=== PATIENT | male | born 1985 | race Caucasian/White ===

== ENCOUNTER 2024-03-17 17:58 | Emergency (ER) | payer SELFPAY ==
[2024-03-17 18:10] VITALS: BP 153/83; PULSE 89; RESP 16; TEMP 36.6; O2SAT 100; BMI 29.0
--- NOTE | 2024-03-17 22:53 | ED.RECABL ---
HPI - Recheck/Abnormal Lab/Rx General Chief Complaint: Recheck/Abnormal Lab/Rx Stated Complaint: Strep, can't swallow Time Seen by Provider: 03/17/24 22:03 Source: patient Mode of arrival: Ambulatory History of Present Illness HPI narrative: 38-year-old male presents for difficulty swallowing. Diagnosed with strep throat earlier today and discharged with amoxicillin and Decadron prescription. Patient states that he was having difficulty swallowing the amoxicillin due to the size of the tablet but it was able to swallow his Decadron tablets. Patient states that because he lives alone he wants to make sure that his throat will not close up overnight. He is tolerating secretions. Related Data Previous Rx's Medication Instructions Recorded amoxicillin 500 mg tablet 500 mg PO BID #20 tabs 03/17/24 dexamethasone 6 mg tablet 12 mg (2 x 6 mg) PO ONCE #2 tabs 03/17/24 Allergies Allergy/AdvReac Type Severity Reaction Status Date / Time No Known Drug Allergies Allergy Unverified 03/17/24 18:14 Patient History Social History Smoking Status: Never smoker Smoking Status: Never smoker Substance Use Type: does not use Exam Initial Vital Signs Initial Vital Signs: Vital Signs Temperature 97.8 F 03/17/24 18:10 Pulse Rate 89 03/17/24 18:10 Respiratory Rate 16 03/17/24 18:10 Blood Pressure 153/83 H 03/17/24 18:10 Pulse Oximetry 100 03/17/24 18:10 Oxygen Delivery Method Room Air 03/17/24 18:10 Const: Awake, alert, no acute distress, nontoxic appearing HEENT: airway patent, no pooling of secretions. 3+ tonsillar edema bilaterally Cardiac: regular rate, regular rhythm RESP: unlabored, clear bilaterally, no wheezing Skin: Warm, Dry, intact, no rashes Neuro: AO x3, CN II-XII grossly intact, moves all extremities Course Orders Ordered: Discontinued Medications Amoxicillin (Amoxicillin 250 Mg/5 Ml Prepack) 1 bottle MISC DIRECTED ONE Stop: 03/17/24 22:55 Last Admin: 03/17/24 23:06 Dose: 1 bottle Documented By: TAI Ketorolac Tromethamine (Ketorolac 30 Mg/Ml Vial) 30 mg IM NOW ONE Stop: 03/17/24 23:02 Last Admin: 03/17/24 23:06 Dose: 30 mg Documented By: TAI Lidocaine HCl (Lidocaine Viscous 2% 15 Ml Solution) 15 ml PO NOW ONE Stop: 03/17/24 23:02 Last Admin: 03/17/24 23:06 Dose: 15 ml Documented By: TAI Vital Signs Vital signs: Vital Signs - 8 hr 03/17/24 23:08 Pulse Rate 90 Respiratory Rate 18 Blood Pressure 146/78 H Pulse Oximetry 97 Oxygen Delivery Method Room Air MDM - Recheck/Abnormal Lab/Rx MDM Narrative Medical decision making narrative: Recently diagnosed strep throat with difficulty swallowing. Patient has already received Decadron and taken an appropriate dose for his condition. He has approximately 3+ tonsillar edema without pooling of secretions. Airway is patent and mucous membranes are moist. Patient requested a liquid version of the amoxicillin until his throat feels better and he can tolerate a large pill. A prepack of amoxicillin sent with patient. He was also given viscous lidocaine for comfort and a Toradol injection. Discharge Plan Departure Patient Disposition: Home Clinical Impression: Acute streptococcal pharyngitis Instructions: DI for Strep Throat Activity Restrictions/Additional Instructions: Continue to take your antibiotics as prescribed. When you are able to swallow pills then you may retake them for a total of 10 days of antibiotics. Take Tylenol and ibuprofen as needed for discomfort or fever. Prescriptions: No Action amoxicillin 500 mg tablet 500 mg PO BID Qty: 20 0RF dexamethasone 6 mg tablet 12 mg PO ONCE Qty: 2 0RF Referrals: Miscellaneous,Doctor, MD [Primary Care Provider] - Stand Alone Forms: Patient Portal/API/Survey
[2024-03-17] MEDS: KETOROLAC 30 MG/ML VIAL IM (23:06)
[2024-03-17] MEDS: AMOXICILLIN 250 MG/5 ML PREPACK 1 BOTTLE MISC (23:06)
[2024-03-17] MEDS: LIDOCAINE VISCOUS 2% 15 ML SOLUTION PO (23:06)
[2024-03-17 23:08] VITALS: BP 146/78; PULSE 90; RESP 18; O2SAT 97
== END 2024-03-17 23:15 | disposition home or self-care (01) ==
PROVIDERS: Emergency Provider Emergency Medicine
DX: J02.0 Streptococcal pharyngitis (principal)
CPT/HCPCS: 96372; 99283; J1885

== ENCOUNTER 2024-05-21 20:53 | Emergency (ER) | payer BC, SELFPAY ==
[2024-05-21 20:59] VITALS: BP 104/65; PULSE 80; RESP 18; TEMP 36.9; O2SAT 100; BMI 28.2
--- NOTE | 2024-05-21 21:14 | DI.RAD.S_ITS ---
PROCEDURE: XR ANKLE LT MIN 3V INDICATIONS: fall, left ankle swelling TECHNIQUE: 3 views of the ankle were acquired. COMPARISON: None. FINDINGS: Bones: No fractures or dislocations. Ankle mortise is normally aligned. No suspicious bony lesions. Soft tissues: No tibiotalar joint effusion. Achilles tendon appears normal. IMPRESSION: No acute bony abnormality or significant effusion. Approved by: Naima Mitchell M.D.,Ph.D. on 05/21/2024 at 21:48
--- NOTE | 2024-05-22 00:54 | ED_ITS ---
HPI - Extremity Injury (Lower) General Chief Complaint: Extremity Injury, Lower Stated Complaint: lt hand, lt foot injuries Time Seen by Provider: 05/22/24 00:46 Source: patient, family, RN notes reviewed and old records reviewed Mode of arrival: Wheelchair Limitations: no limitations History of Present Illness HPI Narrative: 38-year-old male no reported medical issues states he was out on a porch moving a Pyrex dish thought there was a step down and there was not fell sort of inverting his ankle as well as falling on the glass dish in cutting his hand. Patient states he is pain in his ankle he was able to weightbear but has a little bit uncomfortable. Denies any numbness or tingling or weakness in the lower extremity. States he was several abrasions to his extremities but main concern is laceration to the left hand. He denies any numbness tingling or weakness has full range of motion. States he did not wash it out after initially fell. States tetanus was updated last in 2014. Notes that he surgery on his wrist on the left in the past but no other medical issues reported. No daily prescription medications. No known drug allergies. Denies any regular tobacco, no regular alcohol or recreational drugs. Related Data Home Medications Medication Instructions Recorded Confirmed No Known Home Medications 05/21/24 05/21/24 Allergies Allergy/AdvReac Type Severity Reaction Status Date / Time No Known Drug Allergies Allergy Unverified 03/17/24 18:14 Review of Systems Review of Systems ROS Unobtainable: All systems reviewed & are unremarkable except as noted in HPI and below Patient History Social History Smoking Status: Never smoker Smoking Status: Never smoker Exam Narrative Exam Narrative: GENERAL: Alert and oriented x three, male in mild distress HEENT: Head normocephalic, atraumatic, EOMI, pupils reactive, face symmetric, moist mucous membranes NECK: Supple, full range of motion CARDIOVASCULAR: Regular rate and rhythm without murmurs, rubs or gallops. RESPIRATORY: Breath sounds equal bilaterally, no wheezes rales or rhonchi. ABDOMEN: Soft, nontender. Normoactive bowel sounds all 4 quadrants. No guarding or rebound, rigidity, no mass : No CVA tenderness EXTREMITIES: Normal range of motion, no clubbing or edema. Neurovascularly intact. Nontender of the left knee, tib-fib, ankle or foot. Patient does have swelling and ecchymosis over the lateral malleolus as well as just inferior. No joint laxity appreciated. 2+ dorsalis pedis normal sensation throughout. Left hand patient has a stellate laceration on the ulnar side of the hand. Normal range of motion of all 5 fingers no bony tenderness. No tendon or ligament involvement appreciated. 2+ radial pulse. Cap refill less than 2 seconds in all 5 fingers. NEUROLOGICAL: Cranial nerves II through XII grossly intact. Moving all extremities SKIN: Warm, dry, no petechiae, no rashes or lesions. Initial Vital Signs Initial Vital Signs: Vital Signs Temperature 98.4 F 05/21/24 20:59 Pulse Rate 80 05/21/24 20:59 Respiratory Rate 18 05/21/24 20:59 Blood Pressure 104/65 05/21/24 20:59 Pulse Oximetry 100 05/21/24 20:59 Oxygen Delivery Method Room Air 05/21/24 20:59 Procedures Laceration Repair Laceration 1: Site: hand Side (If applicable): left Size (cm): 1.2 Description: stellate, irregular and clean Depth: simple, single layer Local Anesthetic: lidocaine 1% Amount of anesthesia used (mL): 4 Pre-repair: wound explored, irrigated extensively and deep structures intact Skin layer closed with: nylon Skin layer suture size: 4-0 Number of sutures: 5 Technique: simple, interrupted Course Orders Ordered: ED Orders 05/21/24 21:14 XR ankle LT min 3V Stat Discontinued Medications Bacitracin (Bacitracin Oint 0.9 Gm Pckt) 3 applic TOP NOW ONE Stop: 05/22/24 01:24 Last Admin: 05/22/24 01:27 Dose: 3 applic Documented By: AB Diphtheria/Tetanus/Acell Pertussis (Tet,Diph,Pertuss(Acell),Vac/Pf 0.5 Ml Syringe) 0.5 ml IM .ONCE ONE Stop: 05/22/24 01:20 Last Admin: 05/22/24 01:27 Dose: 0.5 ml Documented By: AB Lidocaine HCl (Lidocaine 1% 20 Ml) 20 ml INJ INTRA-OP ONE Stop: 05/21/24 21:52 Last Admin: 05/22/24 01:08 Dose: 20 ml Documented By: AB Vital Signs Vital signs: Vital Signs - 8 hr 05/21/24 20:59 05/22/24 01:49 Temperature 98.4 F Pulse Rate 80 88 Respiratory Rate 18 20 Blood Pressure 104/65 127/88 Pulse Oximetry 100 97 Oxygen Delivery Method Room Air Room Air MDM - Extremity Injury (Lower) Imaging Data Extremity x-ray #1: Radiologist's Impression: Bob Hernandez??38??M??1985 ? Allergy/Adv: No Known Drug Allergies (More??) Close Ankle X-Ray (Signed) Naima Mitchell - 05/21/24 Launch?[address] [address] XRay Report Signed Patient: Bob Hernandez MR#: [id number] : 1985 Acct:[id number] Age/Sex: 38 / M Date of Service: 05/21/24 Loc: ED Accession Number: [id number] Procedure: XR ankle LT min 3V Ordering Provider: Jacqueline Wise D.O. PROCEDURE: XR ANKLE LT MIN 3V INDICATIONS: fall, left ankle swelling TECHNIQUE: 3 views of the ankle were acquired. COMPARISON: None. FINDINGS: Bones: No fractures or dislocations. Ankle mortise is normally aligned. No suspicious bony lesions. Soft tissues: No tibiotalar joint effusion. Achilles tendon appears normal. IMPRESSION: No acute bony abnormality or significant effusion. Approved by: Naima Mitchell M.D.,Ph.D. on 05/21/2024 at 21:48 MDM Narrative Medical decision making narrative: 38-year-old male with ground level fall denies hitting his head no loss of consciousness no neck or back pain has several abrasions on his extremity but has a laceration of the left hand did require repair no tendon or ligament involvement no foreign body appreciated. Patient tolerated this well. Patient also appears to have a left ankle sprain. Did have x-ray which shows no acute fracture or bony change. Patient's tetanus was updated. Discussed with patient he was able to weightbear pretty well does have crutches at home so use David wrap and weightbear as tolerated. Sutures to be removed in 7-10 days with wound care directions reviewed verbally and given written. Discussed return precautions all questions answered. Discharge Plan Departure Patient Disposition: Home Clinical Impression: Laceration of hand, Left ankle sprain Instructions: DI for Laceration Repair, DI for Ankle Sprain Activity Restrictions/Additional Instructions: Wound Care: Keep wound(s) clean and dry. Wash daily with soap and water only. Do not use over the counter products (alcohol or peroxide)on the wounds unless instructed by a physician. You can use triple antibiotic ointment to the laceration daily. If wound condition worsens (increased/expanding redness, developing fluid blisters, or worsening pain), either contact your doctor for an urgent re- assessment , or return to the Emergency Department. Return to the ED, urgent care, or visit a primary care doctor for removal or sutures in 7-10 days. Weightbear as tolerated if you are having worsening pain with no improvement follow up in the next week for recheck of your ankle. Return if fever greater than 100.4 Fahrenheit, increased swelling, increasing pain or worsening symptoms such as increased discharge or spreading redness, any new weakness numbness or difficulty with movement of your hand or ankle or other new or concerning changes. Prescriptions: No Action No Known Home Medications Referrals: Miscellaneous,Doctor, [Primary Care Provider] - Stand Alone Forms: Patient Portal/API/Survey
[2024-05-22] MEDS: LIDOCAINE 1% 20 ML INJ (01:08)
--- NOTE | 2024-05-22 01:21 | PC.NURSE ---
Right knee has a slight abrasion, non bleeding. Cleaned in triage left open to air. Right hand cleaned in triage, no open wounds noted. Left hand will be sutured by provider, then a dressing placed after.
[2024-05-22] MEDS: BACITRACIN OINT 0.9 GM PCKT 3 APPLIC TOP (01:27)
[2024-05-22] MEDS: TET,DIPH,PERTUSS(ACELL),VAC/PF 0.5 ML SYRINGE IM (01:27)
[2024-05-22 01:49] VITALS: BP 127/88; PULSE 88; RESP 20; O2SAT 97
== END 2024-05-22 01:50 | disposition home or self-care (01) ==
PROVIDERS: Emergency Provider Emergency Medicine
DX: S61.412A Laceration without foreign body of left hand, initial encounter (principal); S93.402A Sprain of unspecified ligament of left ankle, initial encounter; X50.1XXA Overexertion from prolonged static or awkward postures, initial encounter; Z23 Encounter for immunization
CPT/HCPCS: 12001; 73610; 90471; 99283; 90715

== ENCOUNTER → 2024-06-25 15:47 | Outpatient (CLI) | payer OTHER, SELFPAY ==
--- NOTE | 2024-06-25 15:48 | DI.MRI.S_ITS ---
PROCEDURE: MR ANKLE LT WO CON INDICATIONS: SPRAIN LEFT ANKLE TECHNIQUE: Noncontrast sagittal T1 spin echo and T2 fast spin echo with fat saturation, axial proton density fast spin echo and T2 fast spin echo with fat saturation, coronal T1 spin echo and T2 fast spin echo with fat saturation through the ankle/hindfoot. COMPARISON: [facility], CR, XR ANKLE LT MIN 3V, 05/21/2024, 21:14. FINDINGS: Image quality: Excellent. Bones and joints: Extensive marrow edema involving 5th metatarsal shaft with a nondisplaced fracture through 5th metatarsal base is seen. Significant marrow edema involving plantar aspect of distal talus is seen without discrete fracture line. Small osteochondral injuries are noted involving lateral weight-bearing portion of talar dome with mild surrounding edema. Small to moderate joint effusion is seen, no loose bodies. No other area of abnormal marrow signal. Medial structures: The posterior tibialis, flexor digitorum longus, and flexor hallucis longus tendons are mildly thickened with small amount of fluid distending tendon sheath at the level of tibiotalar joint extending to the level of talonavicular joint.. The posterior tibial neurovascular bundle appears normal within the tarsal tunnel, without extrinsic mass effect. The deltoid ligament and spring ligament are thickened with intrasubstance T2 hyperintense signal. Lateral structures: The anterior talofibular ligament is mildly thickened. The calcaneofibular, and posterior talofibular ligaments appear intact. More superiorly, the anterior and posterior tibiofibular ligaments appear intact, as is the intermalleolar ligament. The tibiofibular syndesmosis is normal in width at 2 mm or less. The peroneus longus and brevis tendons are mildly thickened extending to their distal insertions. No gross signal abnormality is seen within the sinus tarsi. Anterior structures: The tibialis anterior, extensor hallucis longus, and extensor digitorum longus tendons appear intact. The dorsal talonavicular ligament appears intact. Posterior and plantar structures: Achilles tendon is intact. Medial and lateral bands of the plantar fascia are of normal thickness. No abductor digiti quinti muscle atrophy to suggest Gutierrez neuropathy. IMPRESSION: 1. Acute to subacute appearing nondisplaced fracture involving 5th metatarsal base. 2. Likely bony contusion involving plantar aspect of distal talus. 3. Small osteochondral injuries involving lateral weight-bearing portion of talar dome. Small to moderate joint effusion, no loose bodies. 4. Low-grade tenosynovitis involving flexor tendons. Mild tendinosis also seen involving peroneus tendons at the level of lateral malleolus extending to their distal insertions. 5. Low-grade partial-thickness tear involving medial ankle ligaments. Low-grade sprain involving anterior talofibular ligament. No full-thickness ankle ligament rupture. Dictated by: Ken Aly M.D. on 06/29/2024 at 13:29 Approved by: Ken Aly M.D. on 06/29/2024 at 13:39
== END ==
PROVIDERS: Family Provider Emergency Medicine Emergency Medical Services; PCP Emergency Medicine Emergency Medical Services; Referring Provider Emergency Medicine Emergency Medical Services; Visit Provider Emergency Medicine Emergency Medical Services
DX: S92.355A Nondisplaced fracture of fifth metatarsal bone, left foot, initial encounter for closed fracture (principal); S93.492A Sprain of other ligament of left ankle, initial encounter; M65.972 Unspecified synovitis and tenosynovitis, left ankle and foot; M25.472 Effusion, left ankle
CPT/HCPCS: 73721

== ENCOUNTER 2024-08-24 08:15 | Outpatient (RCR) | payer OTHER, SELFPAY ==
--- NOTE | 2024-06-16 08:22 | PT-OP ANOTE ---
Pt does not show for eval.
--- NOTE | 2024-06-17 10:40 | PT-OP ANOTE ---
Addendum entered and electronically signed by Akosua Garcia, PT 06/17/24 18:22: Pt called to inform of MD recommendations. MD called PT back and left kenag w/front: MRI order is in at [facility] and there may be an insurance issue and said no to podiatry referral. Pt to stay in boot until MRI Original Note: Pt provider office called and inquired about MRI and pt said doctor had discussed this with him. Also, asked provider to consider referral to podiatry as pt has very little ROM. Asked to call back and inform re: how long he wants pt to wear boot.
--- NOTE | 2024-06-17 11:15 | PT.OIE ---
Current Diagnoses Sprain of unspecified ligament of left ankle, subsequent encounter (06/17/24) Visit Care Team Role Provider Type Andrey Sanchez MD Attending Provider Non-Staff Family Provider Primary Care Provider Referring Provider Specialty: Emergency Medicine Family Practice Address: [address] [place] [address], [address], [place], [address] Email: Physical Therapy Initial Evaluation PT-OP-A Visit Information Start: 06/15/24 16:00 Freq: Status: Active Protocol: Document 06/17/24 09:54 [facility] (Rec: 06/17/24 11:14 [facility] [id number]) Out-Patient Physical Therapy Visit Information Visit Information Visit Type Initial Evaluation Visit Start Time 09:51 Visit Stop Time 10:31 Visit Number 05/29 Number of DIRECTOR SOCIAL SERVICE Visits 0 PT-OP-B Current Condition Start: 06/15/24 16:00 Freq: Status: Active Protocol: Document 06/17/24 09:54 [facility] (Rec: 06/17/24 11:14 [facility] [id number]) Current Condition History of Current Condition Onset Date 05/22 Current Complaints L ankle sprain and 5th MT fx History of Current Condition Pt picked up something and stepped backwards off the porch and twisted. Came to ER and they did ankle xray looked ok. Told him just sprain and was walking on it since they told him it was ok for 10 days . He got stitches out d/t it got cut in hand but walk in didn't look at ankle. Did xray and 5th MT fx and severe med and lat ankle sprain. He hasn' t had any guidance so hasn't done much. He has been in boot since primary appt. Doing ROM at home. When rests for a long time, gets stiff and locks up. Did not give a timeline for the boot but just referred for PT. Hx of R ankle sprains and breaks. In 2014, L ankle had ankle injury w/ant swelling after playing frizbee on feild and lat roll but also pushed into DF. Didn 't have insurance so didn't ahve it checked. Had a chip on L baptiste d/t running into doorframe. Typically runs frequently, except R achilles injury in 2022 so has dec some but does hike and walk a lot. Walks beach, goes swimming. Mostly wearing the boot at home. He has tried small bouts later in the day w/the boot Treatment Goals Patient/Caregiver Goals Be able to hike, run, walk on beach PT-OP-C Subjective Start: 06/15/24 16:00 Freq: Status: Active Protocol: Document 06/17/24 09:54 [facility] (Rec: 06/17/24 11:15 [facility] [id number]) Patient Questionnaires Lower Extremity Functional Scale LEFS Score 38/80 PT-OP-F Manual Assessment Start: 06/15/24 16:00 Freq: Status: Active Protocol: Document 06/17/24 09:54 [facility] (Rec: 06/17/24 11:14 [facility] [id number]) Manual Assessments Soft Tissue Assessment Soft Tissue Mobility Assessment ant ankle swelling and around malleoli PT-OP-G Mobility & Gait Start: 06/15/24 16:00 Freq: Status: Active Protocol: Document 06/17/24 09:54 [facility] (Rec: 06/17/24 11:14 [facility] [id number]) OP Gait Assessment Comments Gait Comments amb w/walking boot w/dec stance time PT-OP-K Range of Motion Start: 06/15/24 16:00 Freq: Status: Active Protocol: Document 06/17/24 09:54 [facility] (Rec: 06/17/24 11:14 [facility] [id number]) Ankle and Foot Goniometric Range of Motion Ankle and Foot Right Active Dorsiflexion with Knee Flexed 5 Dorsiflexion with Knee Extended 2 Plantarflexion 59 Inversion 36 Eversion 21 Left Active Dorsiflexion with Knee Flexed 8 Dorsiflexion with Knee Extended 17 Plantarflexion 38 Inversion 3 Eversion 11 Comments lacking DF to neutral in both positions PT-OP-L Special Tests Start: 06/17/24 11:14 Freq: Status: Active Protocol: Document 06/17/24 09:54 [facility] (Rec: 06/17/24 11:15 [facility] [id number]) Special Tests Foot/Ankle Special Tests ant drawer Comments painful and pt guards so difficult to determine for laxity talar tilt Comments positive for pain and inc laxity PT-OP-Q Treatments Start: 06/15/24 16:00 Freq: Status: Active Protocol: Document 06/17/24 09:54 [facility] (Rec: 06/17/24 11:14 [facility] [id number]) Therapeutic Exercises Sitting Exercises AROM Sitting Exercise Name 1. PF/DF 2. Inversion/eversion Side left Reps/Minutes 10 ea AROM and AAROM ea ABCs Sitting Exercise Name 5 letters Side left circles Sitting Exercise Name CW/CCW Side left Reps/Minutes 10 BAPs Sitting Exercise Name Ankle DF/PF, inversion/ eversion Side left Reps/Minutes 2x10 ea Self-Care/Home Management Treatment Education Other Education 10 min: encouraged pt to follow up w/primary re: MRI and that seeing podiatry may be beneficial given that ROM cont to be very difficult for him and painful and he is almost 4 weeks since injury and has been doing ROM exercises prior to starting PT . Discussed importance of wearing boot until cleared by doctor to stop and edu that fractures can take 6-8 weeks at least to heal.edu that when cleared out of the boot, he will need to wear a supportive shoe for the first several weeks. PT-OP-T Assessment and Plan Start: 06/15/24 16:00 Freq: Status: Active Protocol: Document 06/17/24 09:54 [facility] (Rec: 06/17/24 11:14 [facility] [id number]) Physical Therapy Assessment Rehab Potential Rehabilitation Potential Good Evaluation Complexity Number of Personal Factors/Comorbidities 3 or More Number of Body Systems Impaired 4 or More Clinical Presentation at Evaluation Evolving Impairments Impairments Activity Tolerance,Balance, Edema,Functional Activities, Functional Mobility,Gait,Pain, Posture,ROM,Soft Tissue Mobility,Strength Goals LEFS Impairment 38/80 Short Term Goal (STG) Pt will improve score of LEFS to at least 50/80 to show improved functional ability. STG Duration 4 Lawn Care Technician Goal (LTG) Pt will improve score of LEFS to at least 70/80 to show improved functional ability. LTG Duration 5/ balance Lawn Care Technician Goal (LTG) Pt will be able to do SLS for at least 30 sec on LLE to show improved stability to dec risk for further injuries LTG Duration 5/ gait Short Term Goal (STG) Pt will show good gait mechanics when walking w/o boot w/o pain greater than 2/ 10 STG Duration 07/23 Lawn Care Technician Goal (LTG) Pt will be able to return to running, hiking, walking on the beach w/o inc pain LTG Duration 09/09 AROM Short Term Goal (STG) Pt will have DF to neutral in knee ext and flexed position STG Duration 07/28 Lawn Care Technician Goal (LTG) Pt will have full AROM w/o inc pain to allow for greater ease w/activities. LTG Duration 09/09 Assessment Summary Assessment Pt presents about 4 weeks s/p L ankle sprain that primary doctor dx as severe sprain along w/5th MT fx taht was not found at ER visit and found 10 days later after pt walking on it normally. He took a step back off a porch and fell twisting it. He has been in a boot since from primary care provider and has been doing AROM exercises. He has very limted AROM with pain limiting him and MMT not tested d/t pain w/ROM today. He does cont to have swelling and had positive talar tilt and ant drawer test was painfula nd pt guarded so unable to get a good result. He may benefit from further imgaing d/t the significant trauma of the injury along w/consult to podiatry along w/PT to work on progressive ROM, strength and gait to return to normal activity. Physical Therapy Plan Frequency and Duration Frequency of Treatment 2x/Week Duration of treatment (weeks) 12 Plan of Care Start Date 06/17/24 Plan of Care End Date 09/09/24 Therapeutic Interventions Therapeutic Interventions Balance Training,Gait Training ,Home Exercise Program,Joint Mobilizations,Manual Therapy, Neuromuscular Re-education, Patient/Caregiver Education, Self-Care/Home Management,Soft Tissue Mobilization,Taping, Therapeutic Activities, Therapeutic Exercises Modalities Cold Pack/Ice Massage,Electric Stimulation,Hot Packs, Infrared Therapy,Ultrasound Next Visit Focus/Plan Next Note Type Treatment Note Next Visit Plan await further information from provider re: if able to take off boot and progress to shoe when able; gentle manual to calf and peroneals and grade 1 to 2 to ankle (avoid 5th MT d /t fx) to work on ROM, try laser, consider US, taping once out of boot
--- NOTE | 2024-06-24 16:19 | PT.OTN ---
Current Diagnoses Sprain of unspecified ligament of left ankle, subsequent encounter (06/24/24) Physical Therapy Treatment Note PT-OP-A Visit Information Start: 06/15/24 16:00 Freq: Status: Active Protocol: Document 06/24/24 15:20 [facility] (Rec: 06/24/24 16:19 [facility] [id number]) Out-Patient Physical Therapy Visit Information Visit Information Visit Type Treatment Note Visit Start Time 15:20 Visit Stop Time 16:00 Visit Number 06/29 Number of MID TEACHER Visits 0 PT-OP-B Current Condition Start: 06/15/24 16:00 Freq: Status: Active Protocol: Document 06/17/24 09:54 [facility] (Rec: 06/17/24 11:14 [facility] [id number]) Current Condition History of Current Condition Onset Date 05/22 Current Complaints L ankle sprain and 5th MT fx History of Current Condition Pt picked up something and stepped backwards off the porch and twisted. Came to ER and they did ankle xray looked ok. Told him just sprain and was walking on it since they told him it was ok for 10 days . He got stitches out d/t it got cut in hand but walk in didn't look at ankle. Did xray and 5th MT fx and severe med and lat ankle sprain. He hasn' t had any guidance so hasn't done much. He has been in boot since primary appt. Doing ROM at home. When rests for a long time, gets stiff and locks up. Did not give a timeline for the boot but just referred for PT. Hx of R ankle sprains and breaks. In 2014, L ankle had ankle injury w/ant swelling after playing frizbee on feild and lat roll but also pushed into DF. Didn 't have insurance so didn't ahve it checked. Had a chip on L baptiste d/t running into doorframe. Typically runs frequently, except R achilles injury in 2022 so has dec some but does hike and walk a lot. Walks beach, goes swimming. Mostly wearing the boot at home. He has tried small bouts later in the day w/the boot Treatment Goals Patient/Caregiver Goals Be able to hike, run, walk on beach PT-OP-C Subjective Start: 06/15/24 16:00 Freq: Status: Active Protocol: Document 06/24/24 15:20 [facility] (Rec: 06/24/24 16:19 [facility] [id number]) OP-PT Subjective Patient Comments Patient Comments Pt reports compliance w/ exercises and feels like a weird sensation w/inversion. PT-OP-F Manual Assessment Start: 06/15/24 16:00 Freq: Status: Active Protocol: Document 06/17/24 09:54 [facility] (Rec: 06/17/24 11:14 [facility] [id number]) Manual Assessments Soft Tissue Assessment Soft Tissue Mobility Assessment ant ankle swelling and around malleoli PT-OP-G Mobility & Gait Start: 06/15/24 16:00 Freq: Status: Active Protocol: Document 06/17/24 09:54 [facility] (Rec: 06/17/24 11:14 [facility] [id number]) OP Gait Assessment Comments Gait Comments amb w/walking boot w/dec stance time PT-OP-K Range of Motion Start: 06/15/24 16:00 Freq: Status: Active Protocol: Document 06/17/24 09:54 [facility] (Rec: 06/17/24 11:14 [facility] [id number]) Ankle and Foot Goniometric Range of Motion Ankle and Foot Right Active Dorsiflexion with Knee Flexed 5 Dorsiflexion with Knee Extended 2 Plantarflexion 59 Inversion 36 Eversion 21 Left Active Dorsiflexion with Knee Flexed 8 Dorsiflexion with Knee Extended 17 Plantarflexion 38 Inversion 3 Eversion 11 Comments lacking DF to neutral in both positions PT-OP-L Special Tests Start: 06/17/24 11:14 Freq: Status: Active Protocol: Document 06/17/24 09:54 [facility] (Rec: 06/17/24 11:15 [facility] [id number]) Special Tests Foot/Ankle Special Tests ant drawer Comments painful and pt guards so difficult to determine for laxity talar tilt Comments positive for pain and inc laxity PT-OP-Q Treatments Start: 06/15/24 16:00 Freq: Status: Active Protocol: Document 06/24/24 15:20 [facility] (Rec: 06/24/24 16:19 [facility] [id number]) Therapeutic Exercises Sitting Exercises towel scrunch Side left Reps/Minutes 2x marble picking belt operator Side left Reps/Minutes 20 toe yoga Sitting Exercise Name 1.big toe lift only 2. little toes lift only 3. abd w/ individual lowering Side left Reps/Minutes 12 ea AROM Sitting Exercise Name 1. PF/DF 2. Inversion/eversion Side left Reps/Minutes 5ea AROM and AAROM ea BAPs Sitting Exercise Name Ankle DF/PF, inversion/ eversion Side left Reps/Minutes 2x10 ea Manual Therapy Treatment Consent Patient gave verbal consent for manual Yes treatment Soft Tissue Mobilization foot Body Location abd hallicus longus Mobilization Type Rolling peroneals Body Location L Mobilization Type Rolling calf Body Location L Mobilization Type Rolling Comments gentle APs PT-OP-T Assessment and Plan Start: 06/15/24 16:00 Freq: Status: Active Protocol: Document 06/24/24 15:20 [facility] (Rec: 06/24/24 16:19 [facility] [id number]) Physical Therapy Assessment Goals LEFS Impairment 38/80 Short Term Goal (STG) Pt will improve score of LEFS to at least 50/80 to show improved functional ability. STG Duration 08/04 Senior Living Goal (LTG) Pt will improve score of LEFS to at least 70/80 to show improved functional ability. LTG Duration 09/09 balance Custom Wood Stair Builder Goal (LTG) Pt will be able to do SLS for at least 30 sec on LLE to show improved stability to dec risk for further injuries LTG Duration 09/09 gait Short Term Goal (STG) Pt will show good gait mechanics when walking w/o boot w/o pain greater than 2/ 10 STG Duration 07/23 Senior Living Goal (LTG) Pt will be able to return to running, hiking, walking on the beach w/o inc pain LTG Duration 09/09 AROM Short Term Goal (STG) Pt will have DF to neutral in knee ext and flexed position STG Duration 07/28 Senior Living Goal (LTG) Pt will have full AROM w/o inc pain to allow for greater ease w/activities. LTG Duration 09/09 Assessment Summary Assessment Pt tolerated exercises w/o inc pain. He has improved mildly w/ROM. Awaiting MRI tomorrow to determine further care. Physical Therapy Plan Frequency and Duration Frequency of Treatment 2x/Week Duration of treatment (weeks) 12 Plan of Care Start Date 06/17/24 Plan of Care End Date 09/09/24 Next Visit Focus/Plan Next Note Type Treatment Note Next Visit Plan see what MRI says and pt doctor says re: follow up. gentle manual to calf and peroneals and grade 1 to 2 to ankle (avoid 5th MT d/t fx) to work on ROM, try laser, consider US, taping once out of boot
--- NOTE | 2024-07-01 08:16 | PT.OTN ---
Current Diagnoses Sprain of unspecified ligament of left ankle, subsequent encounter (07/01/24) Physical Therapy Treatment Note PT-OP-A Visit Information Start: 06/15/24 16:00 Freq: Status: Active Protocol: Document 07/01/24 07:33 [facility] (Rec: 07/01/24 08:17 [facility] [id number]) Out-Patient Physical Therapy Visit Information Visit Information Visit Type Treatment Note Visit Start Time 07:33 Visit Stop Time 08:16 Visit Number 07/27 Number of ACID BLEACHER Visits 1 PT-OP-B Current Condition Start: 06/15/24 16:00 Freq: Status: Active Protocol: Document 06/17/24 09:54 [facility] (Rec: 06/17/24 11:14 [facility] [id number]) Current Condition History of Current Condition Onset Date 05/22 Current Complaints L ankle sprain and 5th MT fx History of Current Condition Pt picked up something and stepped backwards off the porch and twisted. Came to ER and they did ankle xray looked ok. Told him just sprain and was walking on it since they told him it was ok for 10 days . He got stitches out d/t it got cut in hand but walk in didn't look at ankle. Did xray and 5th MT fx and severe med and lat ankle sprain. He hasn' t had any guidance so hasn't done much. He has been in boot since primary appt. Doing ROM at home. When rests for a long time, gets stiff and locks up. Did not give a timeline for the boot but just referred for PT. Hx of R ankle sprains and breaks. In 2014, L ankle had ankle injury w/ant swelling after playing frizbee on feild and lat roll but also pushed into DF. Didn 't have insurance so didn't ahve it checked. Had a chip on L baptiste d/t running into doorframe. Typically runs frequently, except R achilles injury in 2022 so has dec some but does hike and walk a lot. Walks beach, goes swimming. Mostly wearing the boot at home. He has tried small bouts later in the day w/the boot Treatment Goals Patient/Caregiver Goals Be able to hike, run, walk on beach PT-OP-C Subjective Start: 06/15/24 16:00 Freq: Status: Active Protocol: Document 07/01/24 07:33 [facility] (Rec: 07/01/24 08:17 [facility] [id number]) OP-PT Subjective Patient Comments Patient Comments Pt reports hasn't heard back from Dr about MRI but boot causing irritation lump over anterior mid shaft of tibia, arrives today not wearing the boot arrival. He stated ordered a rigid ankle brace like aircast for support stabiltiy of ankle. PT-OP-F Manual Assessment Start: 06/15/24 16:00 Freq: Status: Active Protocol: Document 06/17/24 09:54 [facility] (Rec: 06/17/24 11:14 [facility] [id number]) Manual Assessments Soft Tissue Assessment Soft Tissue Mobility Assessment ant ankle swelling and around malleoli PT-OP-G Mobility & Gait Start: 06/15/24 16:00 Freq: Status: Active Protocol: Document 06/17/24 09:54 [facility] (Rec: 06/17/24 11:14 [facility] [id number]) OP Gait Assessment Comments Gait Comments amb w/walking boot w/dec stance time PT-OP-K Range of Motion Start: 06/15/24 16:00 Freq: Status: Active Protocol: Document 06/17/24 09:54 [facility] (Rec: 06/17/24 11:14 [facility] [id number]) Ankle and Foot Goniometric Range of Motion Ankle and Foot Right Active Dorsiflexion with Knee Flexed 5 Dorsiflexion with Knee Extended 2 Plantarflexion 59 Inversion 36 Eversion 21 Left Active Dorsiflexion with Knee Flexed 8 Dorsiflexion with Knee Extended 17 Plantarflexion 38 Inversion 3 Eversion 11 Comments lacking DF to neutral in both positions PT-OP-L Special Tests Start: 06/17/24 11:14 Freq: Status: Active Protocol: Document 06/17/24 09:54 [facility] (Rec: 06/17/24 11:15 [facility] [id number]) Special Tests Foot/Ankle Special Tests ant drawer Comments painful and pt guards so difficult to determine for laxity talar tilt Comments positive for pain and inc laxity PT-OP-Q Treatments Start: 06/15/24 16:00 Freq: Status: Active Protocol: Document 07/01/24 07:33 [facility] (Rec: 07/01/24 08:17 [facility] [id number]) Therapeutic Exercises Sitting Exercises towel scrunch Sitting Exercise Name arch lift and toe scrunch Side left Reps/Minutes 2x toe yoga Sitting Exercise Name 1.big toe lift only 2. little toes lift only 3. abd w/ individual lowering Side left Reps/Minutes 12 ea Comments reviewed BAPs Sitting Exercise Name Ankle DF/PF, inversion/ eversion, CW, CCW Side left Equipment Used ball 4 Reps/Minutes 2x10 ea direction Comments cues for slow pacing, no pain reported. Other Exercises self STMs Other Exercise Name rolling pin vs MWM ankle AROM bal under calf and peroneals Side left Comments good feedback response reported, no pain and less muscle tightness. Manual Therapy Treatment Consent Patient gave verbal consent for manual Yes treatment Soft Tissue Mobilization foot Body Location abd hallicus longus Mobilization Type Rolling peroneals Body Location L Mobilization Type Rolling,Sustained Pressure, Other Comments STMs and MWM ankle PF/DF/IV/EV calf Body Location L Mobilization Type Rolling,Sustained Pressure, Other Comments STMs and MWM pincer grasp achilles ankle DF/PF manual and mucle belly over tennis ball, ed self use rolling pin and use ball Joint Mobilizations L ankle Joint calcaneus Comments distraction, med/lat Grade II Taping Ktaping Body Location L ankle Treatment Focus ankle stability med/lat and 5th MTP support Type of Tape Kinesio Tape Skin Inspection normal color, intact Comments med/lateral ankle support: 1 arch support med>lat over 5th MTP 50% tension 1 arch laterally superior along peroneals mid fibula 1 arch medial superior to mid baptiste. Self-Care/Home Management Treatment Education Patient Education Joint Protection,Safety Other Education 3 min: ACID BLEACHER and PT education recommendation calling today to follow up MRI results even though read himself, for guidence if still recommending continue wearing of his boot or if recommendation ankle brace or just sneaker use ok. Pt verbalized understanding. ACID BLEACHER recommended use of boot until hears back from , understanding bruise lump discomfort anterior L baptiste but for safety healing and stabililty support of L foot & ankle. Pt understood will call today. PT-OP-T Assessment and Plan Start: 06/15/24 16:00 Freq: Status: Active Protocol: Document 07/01/24 07:33 [facility] (Rec: 07/01/24 08:17 [facility] [id number]) Physical Therapy Assessment Goals LEFS Impairment 38/80 Short Term Goal (STG) Pt will improve score of LEFS to at least 50/80 to show improved functional ability. STG Duration 08/04 General Magistrate Goal (LTG) Pt will improve score of LEFS to at least 70/80 to show improved functional ability. LTG Duration 09/09 balance General Magistrate Goal (LTG) Pt will be able to do SLS for at least 30 sec on LLE to show improved stability to dec risk for further injuries LTG Duration 09/09 gait Short Term Goal (STG) Pt will show good gait mechanics when walking w/o boot w/o pain greater than 2/ 10 STG Duration 07/23 Long-Term Goal (LTG) Pt will be able to return to running, hiking, walking on the beach w/o inc pain LTG Duration 09/09 AROM Short Term Goal (STG) Pt will have DF to neutral in knee ext and flexed position STG Duration 07/28 General Magistrate Goal (LTG) Pt will have full AROM w/o inc pain to allow for greater ease w/activities. LTG Duration 09/09 Assessment Summary Assessment Pt reported decreased tightness in calf/lateral lower leg and understood self application rolling pin/ball rolling and MWM ankle ROM. Pt good performance and tolerance to L ankle exercises with c/o pain reported. Awaiting pt call with [place]idence of continue use boot vs ankle brace vs ok return to just use sneaker. Physical Therapy Plan Frequency and Duration Frequency of Treatment 2x/Week Duration of treatment (weeks) 12 Plan of Care Start Date 06/17/24 Plan of Care End Date 09/09/24 Therapeutic Interventions Therapeutic Interventions Balance Training,Gait Training ,Home Exercise Program,Joint Mobilizations,Manual Therapy, Neuromuscular Re-education, Patient/Caregiver Education, Self-Care/Home Management,Soft Tissue Mobilization,Taping, Therapeutic Activities, Therapeutic Exercises Modalities Cold Pack/Ice Massage,Electric Stimulation,Hot Packs, Infrared Therapy,Ultrasound Next Visit Focus/Plan Next Note Type Treatment Note Next Visit Plan see what MRI says and pt doctor says re: follow up. gentle manual to calf and peroneals and grade 1 to 2 to ankle (avoid 5th MT d/t fx) to work on ROM, try laser, consider US, taping once out of boot
--- NOTE | 2024-07-02 18:01 | PT-OP ANOTE ---
Talked to PCP and called to say pt can slowly progress w/resistance and ROM and to wear aircast/walking cast.
--- NOTE | 2024-07-07 08:13 | PT.OTN ---
Current Diagnoses Sprain of unspecified ligament of left ankle, subsequent encounter (07/07/24) Physical Therapy Treatment Note PT-OP-A Visit Information Start: 06/15/24 16:00 Freq: Status: Active Protocol: Document 07/07/24 08:21 SP (Rec: 07/07/24 09:07 SP [id number]) Out-Patient Physical Therapy Visit Information Visit Information Visit Type Treatment Note Visit Start Time 07:33 Visit Stop Time 08:13 Visit Number 08/27 Number of FRUIT GRADER OPERATOR Visits 2 PT-OP-B Current Condition Start: 06/15/24 16:00 Freq: Status: Active Protocol: Document 06/17/24 09:54 [facility] (Rec: 06/17/24 11:14 [facility] [id number]) Current Condition History of Current Condition Onset Date 05/22 Current Complaints L ankle sprain and 5th MT fx History of Current Condition Pt picked up something and stepped backwards off the porch and twisted. Came to ER and they did ankle xray looked ok. Told him just sprain and was walking on it since they told him it was ok for 10 days . He got stitches out d/t it got cut in hand but walk in didn't look at ankle. Did xray and 5th MT fx and severe med and lat ankle sprain. He hasn' t had any guidance so hasn't done much. He has been in boot since primary appt. Doing ROM at home. When rests for a long time, gets stiff and locks up. Did not give a timeline for the boot but just referred for PT. Hx of R ankle sprains and breaks. In 2014, L ankle had ankle injury w/ant swelling after playing frizbee on feild and lat roll but also pushed into DF. Didn 't have insurance so didn't ahve it checked. Had a chip on L baptiste d/t running into doorframe. Typically runs frequently, except R achilles injury in 2022 so has dec some but does hike and walk a lot. Walks beach, goes swimming. Mostly wearing the boot at home. He has tried small bouts later in the day w/the boot Treatment Goals Patient/Caregiver Goals Be able to hike, run, walk on beach PT-OP-C Subjective Start: 06/15/24 16:00 Freq: Status: Active Protocol: Document 07/07/24 08:21 SP (Rec: 07/07/24 09:07 SP [id number]) OP-PT Subjective Patient Comments Patient Comments Pt reports spoke to and reported has many little tears around ankle, able to incorporate low daily activities with use aircast for L ankle support. told pt allowing PT to distinguishe when able to DC L ankle brace . He Arrives with purchased Dylan hinged ankle brace with limitations in med/lat ankle mobility. PT approved seen/provides good support. PT-OP-F Manual Assessment Start: 06/15/24 16:00 Freq: Status: Active Protocol: Document 06/17/24 09:54 [facility] (Rec: 06/17/24 11:14 [facility] [id number]) Manual Assessments Soft Tissue Assessment Soft Tissue Mobility Assessment ant ankle swelling and around malleoli PT-OP-G Mobility & Gait Start: 06/15/24 16:00 Freq: Status: Active Protocol: Document 06/17/24 09:54 [facility] (Rec: 06/17/24 11:14 [facility] [id number]) OP Gait Assessment Comments Gait Comments amb w/walking boot w/dec stance time PT-OP-K Range of Motion Start: 06/15/24 16:00 Freq: Status: Active Protocol: Document 06/17/24 09:54 [facility] (Rec: 06/17/24 11:14 [facility] [id number]) Ankle and Foot Goniometric Range of Motion Ankle and Foot Right Active Dorsiflexion with Knee Flexed 5 Dorsiflexion with Knee Extended 2 Plantarflexion 59 Inversion 36 Eversion 21 Left Active Dorsiflexion with Knee Flexed 8 Dorsiflexion with Knee Extended 17 Plantarflexion 38 Inversion 3 Eversion 11 Comments lacking DF to neutral in both positions PT-OP-L Special Tests Start: 06/17/24 11:14 Freq: Status: Active Protocol: Document 06/17/24 09:54 [facility] (Rec: 06/17/24 11:15 [facility] [id number]) Special Tests Foot/Ankle Special Tests ant drawer Comments painful and pt guards so difficult to determine for laxity talar tilt Comments positive for pain and inc laxity PT-OP-Q Treatments Start: 06/15/24 16:00 Freq: Status: Active Protocol: Document 07/07/24 08:21 SP (Rec: 07/07/24 09:07 SP [id number]) Therapeutic Exercises Sitting Exercises toe yoga Sitting Exercise Name 1.big toe lift only 2. little toes lift only 3. abd w/ individual lowering Side left Reps/Minutes 12 ea Comments reviewed- ed continue home BAPs Sitting Exercise Name Ankle DF/PF, inversion/ eversion, CW, CCW Side left Resistance added 2 wts (top board) Equipment Used ball 4 Reps/Minutes 2x10 ea direction Comments cues for slow pacing, improved DF range post manual Standing Exercises calf stretch Standing Exercise Name added to HEP /c HO: gastroc & soleus Side left Equipment Used lunge stance, hands on wall/ counter Reps/Minutes 30 Sec x2 Comments good feedback gentle stretch ankle mobility Standing Exercise Name added to HEP /c drawn HO Side left Equipment Used L foot on chair, UEs hang onto back chair Reps/Minutes 10 reps Comments light achilles stretch, improved range, cued heel down Manual Therapy Treatment Consent Patient gave verbal consent for manual Yes treatment Joint Mobilizations L ankle Joint talocrual PA, Med/Lat Malleolus PA in DF Grade II Comments improved DF BAPS and CW/CCW PT-OP-T Assessment and Plan Start: 06/15/24 16:00 Freq: Status: Active Protocol: Document 07/07/24 08:21 SP (Rec: 07/07/24 09:07 SP [id number]) Physical Therapy Assessment Goals LEFS Impairment 38/80 Short Term Goal (STG) Pt will improve score of LEFS to at least 50/80 to show improved functional ability. STG Duration 08/04 Commercial Loan Collection Officer Goal (LTG) Pt will improve score of LEFS to at least 70/80 to show improved functional ability. LTG Duration 09/09 balance Commercial Loan Collection Officer Goal (LTG) Pt will be able to do SLS for at least 30 sec on LLE to show improved stability to dec risk for further injuries LTG Duration 09/09 gait Short Term Goal (STG) Pt will show good gait mechanics when walking w/o boot w/o pain greater than 2/ 10 STG Duration 07/23 Correction Goal (LTG) Pt will be able to return to running, hiking, walking on the beach w/o inc pain LTG Duration 09/09 AROM Short Term Goal (STG) Pt will have DF to neutral in knee ext and flexed position STG Duration 07/28 Correction Goal (LTG) Pt will have full AROM w/o inc pain to allow for greater ease w/activities. LTG Duration 09/09 Assessment Summary Assessment Pt had good response to manual , improved DF ROM able to perform weighted BAPS B4 ROM, cues for slower pacing DF and CW/CCW. Progressed DF ROM carryover for home initiated ankle mobility and calf stretching due to tension in achilles during BAPS DF motion . Ed continue wear of L ankle McDavis brace for stability during activities. Physical Therapy Plan Frequency and Duration Frequency of Treatment 2x/Week Duration of treatment (weeks) 12 Plan of Care Start Date 06/17/24 Plan of Care End Date 09/09/24 Therapeutic Interventions Therapeutic Interventions Balance Training,Gait Training ,Home Exercise Program,Joint Mobilizations,Manual Therapy, Neuromuscular Re-education, Patient/Caregiver Education, Self-Care/Home Management,Soft Tissue Mobilization,Taping, Therapeutic Activities, Therapeutic Exercises Modalities Cold Pack/Ice Massage,Electric Stimulation,Hot Packs, Infrared Therapy,Ultrasound Next Visit Focus/Plan Next Note Type Treatment Note Next Visit Plan REcheck HEP added TB and wt BAPS last tx. POC: Gentle manual to calf and peroneals and grade 1 to 2 to ankle ( avoid 5th MT d/t fx) to work on ankle ROM, try laser, consider US, taping once out of boot
--- NOTE | 2024-07-07 08:13 | PT.OTN ---
Current Diagnoses Sprain of unspecified ligament of left ankle, subsequent encounter (07/07/24) Physical Therapy Treatment Note PT-OP-A Visit Information Start: 06/15/24 16:00 Freq: Status: Active Protocol: Document 07/07/24 08:21 SP (Rec: 07/07/24 09:07 SP [id number]) Out-Patient Physical Therapy Visit Information Visit Information Visit Type Treatment Note Visit Start Time 07:33 Visit Stop Time 08:13 Visit Number 08/27 Number of PARTS DATA WRITER Visits 2 PT-OP-B Current Condition Start: 06/15/24 16:00 Freq: Status: Active Protocol: Document 06/17/24 09:54 [facility] (Rec: 06/17/24 11:14 [facility] [id number]) Current Condition History of Current Condition Onset Date 05/22 Current Complaints L ankle sprain and 5th MT fx History of Current Condition Pt picked up something and stepped backwards off the porch and twisted. Came to ER and they did ankle xray looked ok. Told him just sprain and was walking on it since they told him it was ok for 10 days . He got stitches out d/t it got cut in hand but walk in didn't look at ankle. Did xray and 5th MT fx and severe med and lat ankle sprain. He hasn' t had any guidance so hasn't done much. He has been in boot since primary appt. Doing ROM at home. When rests for a long time, gets stiff and locks up. Did not give a timeline for the boot but just referred for PT. Hx of R ankle sprains and breaks. In 2014, L ankle had ankle injury w/ant swelling after playing frizbee on feild and lat roll but also pushed into DF. Didn 't have insurance so didn't ahve it checked. Had a chip on L baptiste d/t running into doorframe. Typically runs frequently, except R achilles injury in 2022 so has dec some but does hike and walk a lot. Walks beach, goes swimming. Mostly wearing the boot at home. He has tried small bouts later in the day w/the boot Treatment Goals Patient/Caregiver Goals Be able to hike, run, walk on beach PT-OP-C Subjective Start: 06/15/24 16:00 Freq: Status: Active Protocol: Document 07/07/24 08:21 SP (Rec: 07/07/24 09:07 SP [id number]) OP-PT Subjective Patient Comments Patient Comments Pt reports spoke to and reported has many little tears around ankle, able to incorporate low daily activities with use aircast for L ankle support. told pt allowing PT to distinguishe when able to DC L ankle brace . He Arrives with purchased Ydlan hinged ankle brace with limitations in med/lat ankle mobility. PT approved seen/provides good support. PT-OP-F Manual Assessment Start: 06/15/24 16:00 Freq: Status: Active Protocol: Document 06/17/24 09:54 [facility] (Rec: 06/17/24 11:14 [facility] [id number]) Manual Assessments Soft Tissue Assessment Soft Tissue Mobility Assessment ant ankle swelling and around malleoli PT-OP-G Mobility & Gait Start: 06/15/24 16:00 Freq: Status: Active Protocol: Document 06/17/24 09:54 [facility] (Rec: 06/17/24 11:14 [facility] [id number]) OP Gait Assessment Comments Gait Comments amb w/walking boot w/dec stance time PT-OP-K Range of Motion Start: 06/15/24 16:00 Freq: Status: Active Protocol: Document 06/17/24 09:54 [facility] (Rec: 06/17/24 11:14 [facility] [id number]) Ankle and Foot Goniometric Range of Motion Ankle and Foot Right Active Dorsiflexion with Knee Flexed 5 Dorsiflexion with Knee Extended 2 Plantarflexion 59 Inversion 36 Eversion 21 Left Active Dorsiflexion with Knee Flexed 8 Dorsiflexion with Knee Extended 17 Plantarflexion 38 Inversion 3 Eversion 11 Comments lacking DF to neutral in both positions PT-OP-L Special Tests Start: 06/17/24 11:14 Freq: Status: Active Protocol: Document 06/17/24 09:54 [facility] (Rec: 06/17/24 11:15 [facility] [id number]) Special Tests Foot/Ankle Special Tests ant drawer Comments painful and pt guards so difficult to determine for laxity talar tilt Comments positive for pain and inc laxity PT-OP-Q Treatments Start: 06/15/24 16:00 Freq: Status: Active Protocol: Document 07/07/24 08:21 SP (Rec: 07/07/24 09:07 SP [id number]) Therapeutic Exercises Sitting Exercises toe yoga Sitting Exercise Name 1.big toe lift only 2. little toes lift only 3. abd w/ individual lowering Side left Reps/Minutes 12 ea Comments reviewed- ed continue home BAPs Sitting Exercise Name Ankle DF/PF, inversion/ eversion, CW, CCW Side left Resistance added 3# (2 posts @ .5#, 2 plates @ 1#) Equipment Used ball 4- challenge range into DF Reps/Minutes 2x10 ea direction Comments cues for slow pacing, improved DF range improved post manual Standing Exercises calf stretch Standing Exercise Name added to HEP /c HO: gastroc & soleus Side left Equipment Used lunge stance, hands on wall/ counter Reps/Minutes 30 Sec x2 Comments good feedback gentle stretch ankle mobility Standing Exercise Name added to HEP /c drawn HO Side left Equipment Used L foot on chair, UEs hang onto back chair Reps/Minutes 10 reps Comments light achilles stretch, improved range, cued heel down Manual Therapy Treatment Consent Patient gave verbal consent for manual Yes treatment Joint Mobilizations L ankle Joint talocrual PA, Med/Lat Malleolus PA in DF Grade II Comments improved DF BAPS and CW/CCW PT-OP-T Assessment and Plan Start: 06/15/24 16:00 Freq: Status: Active Protocol: Document 07/07/24 08:21 SP (Rec: 07/07/24 09:07 [id number]) Physical Therapy Assessment Goals LEFS Impairment 38/80 Short Term Goal (STG) Pt will improve score of LEFS to at least 50/80 to show improved functional ability. STG Duration 4 Snf Goal (LTG) Pt will improve score of LEFS to at least 70/80 to show improved functional ability. LTG Duration / balance Machine Ironer Goal (LTG) Pt will be able to do SLS for at least 30 sec on LLE to show improved stability to dec risk for further injuries LTG Duration 5/ gait Short Term Goal (STG) Pt will show good gait mechanics when walking w/o boot w/o pain greater than 2/ 10 STG Duration 07/23 Machine Ironer Goal (LTG) Pt will be able to return to running, hiking, walking on the beach w/o inc pain LTG Duration 5/ AROM Short Term Goal (STG) Pt will have DF to neutral in knee ext and flexed position STG Duration 07/28 Machine Ironer Goal (LTG) Pt will have full AROM w/o inc pain to allow for greater ease w/activities. LTG Duration 09/09 Assessment Summary Assessment Pt had good response to manual , improved DF ROM able to perform weighted BAPS B4 ROM, cues for slower pacing DF and CW/CCW. Progressed DF ROM carryover for home initiated ankle mobility and calf stretching due to tension in achilles during BAPS DF motion . Ed continue wear of L ankle McDavis brace for stability during activities. Physical Therapy Plan Frequency and Duration Frequency of Treatment 2x/Week Duration of treatment (weeks) 12 Plan of Care Start Date 06/17/24 Plan of Care End Date 09/09/24 Therapeutic Interventions Therapeutic Interventions Balance Training,Gait Training ,Home Exercise Program,Joint Mobilizations,Manual Therapy, Neuromuscular Re-education, Patient/Caregiver Education, Self-Care/Home Management,Soft Tissue Mobilization,Taping, Therapeutic Activities, Therapeutic Exercises Modalities Cold Pack/Ice Massage,Electric Stimulation,Hot Packs, Infrared Therapy,Ultrasound Next Visit Focus/Plan Next Note Type Treatment Note Next Visit Plan REcheck HEP added TB and wt BAPS last tx. POC: Gentle manual to calf and peroneals and grade 1 to 2 to ankle ( avoid 5th MT d/t fx) to work on ankle ROM, try laser, consider US, taping once out of boot
--- NOTE | 2024-07-16 15:14 | PT.OTN ---
Current Diagnoses Sprain of unspecified ligament of left ankle, subsequent encounter (07/16/24) Physical Therapy Treatment Note PT-OP-A Visit Information Start: 06/15/24 16:00 Freq: Status: Active Protocol: Document 07/16/24 14:36 SP (Rec: 07/16/24 15:24 SP [id number]) Out-Patient Physical Therapy Visit Information Visit Information Visit Type Treatment Note Visit Note pt 6 min late Visit Start Time 14:36 Visit Stop Time 15:14 Visit Number 09/26 Number of COMMERCIAL FRONT LOAD OPERATOR Visits 3 PT-OP-B Current Condition Start: 06/15/24 16:00 Freq: Status: Active Protocol: Document 06/17/24 09:54 [facility] (Rec: 06/17/24 11:14 [facility] [id number]) Current Condition History of Current Condition Onset Date 05/22 Current Complaints L ankle sprain and 5th MT fx History of Current Condition Pt picked up something and stepped backwards off the porch and twisted. Came to ER and they did ankle xray looked ok. Told him just sprain and was walking on it since they told him it was ok for 10 days . He got stitches out d/t it got cut in hand but walk in didn't look at ankle. Did xray and 5th MT fx and severe med and lat ankle sprain. He hasn' t had any guidance so hasn't done much. He has been in boot since primary appt. Doing ROM at home. When rests for a long time, gets stiff and locks up. Did not give a timeline for the boot but just referred for PT. Hx of R ankle sprains and breaks. In 2014, L ankle had ankle injury w/ant swelling after playing frizbee on feild and lat roll but also pushed into DF. Didn 't have insurance so didn't ahve it checked. Had a chip on L [place]iste d/t running into doorframe. Typically runs frequently, except R achilles injury in 2022 so has dec some but does hike and walk a lot. Walks beach, goes swimming. Mostly wearing the boot at home. He has tried small bouts later in the day w/the boot Treatment Goals Patient/Caregiver Goals Be able to hike, run, walk on beach PT-OP-C Subjective Start: 06/15/24 16:00 Freq: Status: Active Protocol: Document 07/16/24 14:36 SP (Rec: 07/16/24 15:24 SP [id number]) OP-PT Subjective Patient Comments Patient Comments Pt reports feeling good, compliant wth HEP but stated the blue band is really easy, tried some light jumping and trialed light Jog very short distance, little impatient on recovery ex, sore but didn't hurt much. PT-OP-F Manual Assessment Start: 06/15/24 16:00 Freq: Status: Active Protocol: Document 06/17/24 09:54 [facility] (Rec: 06/17/24 11:14 [facility] [id number]) Manual Assessments Soft Tissue Assessment Soft Tissue Mobility Assessment ant ankle swelling and around malleoli PT-OP-G Mobility & Gait Start: 06/15/24 16:00 Freq: Status: Active Protocol: Document 06/17/24 09:54 [facility] (Rec: 06/17/24 11:14 [facility] [id number]) OP Gait Assessment Comments Gait Comments amb w/walking boot w/dec stance time PT-OP-K Range of Motion Start: 06/15/24 16:00 Freq: Status: Active Protocol: Document 06/17/24 09:54 [facility] (Rec: 06/17/24 11:14 [facility] [id number]) Ankle and Foot Goniometric Range of Motion Ankle and Foot Right Active Dorsiflexion with Knee Flexed 5 Dorsiflexion with Knee Extended 2 Plantarflexion 59 Inversion 36 Eversion 21 Left Active Dorsiflexion with Knee Flexed 8 Dorsiflexion with Knee Extended 17 Plantarflexion 38 Inversion 3 Eversion 11 Comments lacking DF to neutral in both positions PT-OP-L Special Tests Start: 06/17/24 11:14 Freq: Status: Active Protocol: Document 06/17/24 09:54 [facility] (Rec: 06/17/24 11:15 [facility] [id number]) Special Tests Foot/Ankle Special Tests ant drawer Comments painful and pt guards so difficult to determine for laxity talar tilt Comments positive for pain and inc laxity PT-OP-Q Treatments Start: 06/15/24 16:00 Freq: Status: Active Protocol: Document 07/16/24 14:36 SP (Rec: 07/16/24 15:24 SP [id number]) Therapeutic Exercises Sitting Exercises ankle strengthening Sitting Exercise Name reviewed HEP: PF, DF, EV, IV ( brace doffed) Side left Resistance TB #1>2 teal (t[place] green next tx) Reps/Minutes 15 reps each Comments cued for set up, stated did fine with TB #1 since last tx Standing Exercises resisted marching Standing Exercise Name added to HEP /c written HO Side bilateral Resistance Tb #3 around arches Reps/Minutes 10 x2 sets Comments cued WBOS resisted stepping Standing Exercise Name lateral, Fwd/Bwd- added to HEP /c written HO Resistance Tb #3 around shins Reps/Minutes 3 laps each direction 15 ft Comments cued allow ankle mobility Heel Raises Standing Exercise Name added to HEP /c written HO Side bilateral Resistance AROM Equipment Used no UE support Reps/Minutes 2x10 Comments good form no pain DF raises Standing Exercise Name added to HEP /c written HO Side bilateral Resistance AROM Equipment Used back to wall/rail Reps/Minutes 2x10 Comments good form, no pain calf stretch Standing Exercise Name reveiewed: gastroc & soleus ( brace donned) Side left Equipment Used lunge stance, hands on wall/ counter Reps/Minutes 30 Sec x2 each Comments good feedback gentle stretch ankle mobility Standing Exercise Name reviewed (brace doffed) Side left Resistance AROM> TB #3 around anterior L ankle posterior glide Equipment Used L foot on chair, UEs hang onto back chair Reps/Minutes 10 x 10 SH, 5 reps with TB Comments light achilles stretch, improved range, cued heel down Gait Training Gait Activity wt shift rocking pre gait Description wt shift rocking- ankle heel strike/toe off Distance/Duration 2x10 each foot position Treatment Focus tarsal mobility, ankle AROM gait phases Comments front mirror: gait phases heel stride eccentric PF, heel lift toe off rocking cued trunk wt shift fwd/bwd/ ankle parallel alignment Manual Therapy Treatment Consent Patient gave verbal consent for manual Yes treatment Joint Mobilizations L ankle Joint talocrual PA, Med/Lat Malleolus PA in DF Grade II Comments manual PA during DF ankle mobility, added TB #3 for self carryover home good results slight increased DF range. PT-OP-T Assessment and Plan Start: 06/15/24 16:00 Freq: Status: Active Protocol: Document 07/16/24 14:36 SP (Rec: 07/16/24 15:24 SP [id number]) Physical Therapy Assessment Goals LEFS Impairment 38/80 Short Term Goal (STG) Pt will improve score of LEFS to at least 50/80 to show improved functional ability. STG Duration 08/04 Nursing Home Goal (LTG) Pt will improve score of LEFS to at least 70/80 to show improved functional ability. LTG Duration 09/09 balance Veterinary Receptionist Goal (LTG) Pt will be able to do SLS for at least 30 sec on LLE to show improved stability to dec risk for further injuries LTG Duration 09/09 gait Short Term Goal (STG) Pt will show good gait mechanics when walking w/o boot w/o pain greater than 2/ 10 STG Duration 07/23 Nursing Home Goal (LTG) Pt will be able to return to running, hiking, walking on the beach w/o inc pain LTG Duration 09/09 AROM Short Term Goal (STG) Pt will have DF to neutral in knee ext and flexed position STG Duration 07/28 Nursing Home Goal (LTG) Pt will have full AROM w/o inc pain to allow for greater ease w/activities. LTG Duration 09/09 Assessment Summary Assessment Pt reported improved ankle DF range with manual and verbalized will use TB for PA self. Good response to progression ankle ROM and functional strengthening with cues for proper set up/form with slow resisted stepping, marching and body weight DF/ HR today with no pain. Physical Therapy Plan Frequency and Duration Frequency of Treatment 2x/Week Duration of treatment (weeks) 12 Plan of Care Start Date 06/17/24 Plan of Care End Date 09/09/24 Therapeutic Interventions Therapeutic Interventions Balance Training,Gait Training ,Home Exercise Program,Joint Mobilizations,Manual Therapy, Neuromuscular Re-education, Patient/Caregiver Education, Self-Care/Home Management,Soft Tissue Mobilization,Taping, Therapeutic Activities, Therapeutic Exercises Modalities Cold Pack/Ice Massage,Electric Stimulation,Hot Packs, Infrared Therapy,Ultrasound Next Visit Focus/Plan Next Note Type Treatment Note Next Visit Plan REcheck resisted ankle HEP, progressed HR, DF, resisted stepping and marching with HO. POC: Gentle manual to calf and peroneals and grade 1 to 2 to ankle (avoid 5th MT d/t fx ) to work on ankle ROM, try laser, consider US, taping once out of boot
--- NOTE | 2024-07-20 14:35 | PT.OTN ---
Current Diagnoses Sprain of unspecified ligament of left ankle, subsequent encounter (07/20/24) Physical Therapy Treatment Note PT-OP-A Visit Information Start: 06/15/24 16:00 Freq: Status: Active Protocol: Document 07/20/24 13:46 [facility] (Rec: 07/20/24 14:35 [facility] [id number]) Out-Patient Physical Therapy Visit Information Visit Information Visit Type Progress Note Visit Start Time 13:50 Visit Stop Time 14:30 Visit Number 10/27 Number of MOBILE HEAVY EQUIPMENT MECHANIC Visits 0 PT-OP-B Current Condition Start: 06/15/24 16:00 Freq: Status: Active Protocol: Document 06/17/24 09:54 [facility] (Rec: 06/17/24 11:14 [facility] [id number]) Current Condition History of Current Condition Onset Date 05/22 Current Complaints L ankle sprain and 5th MT fx History of Current Condition Pt picked up something and stepped backwards off the porch and twisted. Came to ER and they did ankle xray looked ok. Told him just sprain and was walking on it since they told him it was ok for 10 days . He got stitches out d/t it got cut in hand but walk in didn't look at ankle. Did xray and 5th MT fx and severe med and lat ankle sprain. He hasn' t had any guidance so hasn't done much. He has been in boot since primary appt. Doing ROM at home. When rests for a long time, gets stiff and locks up. Did not give a timeline for the boot but just referred for PT. Hx of R ankle sprains and breaks. In 2014, L ankle had ankle injury w/ant swelling after playing frizbee on feild and lat roll but also pushed into DF. Didn 't have insurance so didn't ahve it checked. Had a chip on L [place] d/t running into doorframe. Typically runs frequently, except R achilles injury in 2022 so has dec some but does hike and walk a lot. Walks beach, goes swimming. Mostly wearing the boot at home. He has tried small bouts later in the day w/the boot Treatment Goals Patient/Caregiver Goals Be able to hike, run, walk on beach PT-OP-C Subjective Start: 06/15/24 16:00 Freq: Status: Active Protocol: Document 07/20/24 13:46 [facility] (Rec: 07/20/24 14:35 [facility] [id number]) OP-PT Subjective Patient Comments Patient Comments Was at a show and was sore all around the ankle area and stiff. PT-OP-F Manual Assessment Start: 06/15/24 16:00 Freq: Status: Active Protocol: Document 06/17/24 09:54 [facility] ([facility]17/24 [id number] Manual Assessments Soft Tissue Assessment Soft Tissue Mobility Assessment ant ankle swelling and around malleoli PT-OP-G Mobility & Gait Start: 06/15/24 16:00 Freq: Status: Active Protocol: Document 06/17/24 09:54 [facility] (Rec: 06/17/24 11:14 [id number] OP Gait Assessment Comments Gait Comments amb w/walking boot w/dec stance time PT-OP-K Range of Motion Start: 06/15/24 16:00 Freq: Status: Active Protocol: Document 07/20/24 13:46 [facility] (Rec: 07/20/24 14:35 [id number] Ankle and Foot Goniometric Range of Motion Ankle and Foot Left Active Dorsiflexion with Knee Flexed 2 Dorsiflexion with Knee Extended 0 Plantarflexion 43 Inversion 18 Eversion 18 PT-OP-L Special Tests Start: 06/17/24 11:14 Freq: Status: Active Protocol: Document 06/17/24 09:54 [facility] (Rec: 06/17/24 11:15 [facility] [id number]) Special Tests Foot/Ankle Special Tests ant drawer Comments painful and pt guards so difficult to determine for laxity talar tilt Comments positive for pain and inc laxity PT-OP-M Strength Start: 06/15/24 16:00 Freq: Status: Active Protocol: Document 07/20/24 13:46 [facility] (Rec: 07/20/24 14:35 [facility] [id number]) Ankle/Foot Strength Ankle and Foot Manual Muscle Testing Left Dorsiflexion (L4) 4- Good- Inversion 3 Fair Eversion (S1) 4- Good- Comments strong PF in seated position Toe Strength Toe Manual Muscle Testing Left 2nd Toe Flexion 4+ Good+ Extension 4+ Good+ Comments 2-5 Left Great Toe Flexion 4+ Good+ Extension 4+ Good+ PT-OP-Q Treatments Start: 06/15/24 16:00 Freq: Status: Active Protocol: Document 07/20/24 13:46 [facility] (Rec: 07/20/24 14:35 [facility] [id number]) Therapeutic Exercises Sitting Exercises ankle strengthening Sitting Exercise Name reviewed HEP: PF, DF, EV, IV ( brace doffed) Side left Resistance Lvl 3 Reps/Minutes 15 reps each Standing Exercises Heel Raises Standing Exercise Name review HEP Side bilateral Resistance AROM Equipment Used no UE support Reps/Minutes 10 Comments no brace DF raises Standing Exercise Name review HEP Side bilateral Resistance AROM Equipment Used back to wall/rail Reps/Minutes 10 Comments no brace Manual Therapy Treatment Consent Patient gave verbal consent for manual Yes treatment Soft Tissue Mobilization calf Body Location L achilles and calf Mobilization Type Rolling,Sustained Pressure, Other Joint Mobilizations L ankle Joint c/r Comments distraction calcaneus and lat glide distraction talus med cuneiform 1 Neuro Re-Education Treatment Balance Activities SLS Comments 1. B trials tandem Details cues equal wt on LEs Comments B stance trials tilt board Details 1. fwd/back facing 2. lat facing Comments 1. balance EC trials 2. wt shifts foam Details EC trials Comments 1. WBOS 2. NBOS 3. staggered stance B PT-OP-T Assessment and Plan Start: 06/15/24 16:00 Freq: Status: Active Protocol: Document 07/20/24 13:46 [facility] (Rec: 07/20/24 14:35 [facility] [id number]) Physical Therapy Assessment Goals LEFS Impairment 38/80 Short Term Goal (STG) Pt will improve score of LEFS to at least 50/80 to show improved functional ability. STG Duration achieved to 56/80 07/20 Senior Living Goal (LTG) Pt will improve score of LEFS to at least 70/80 to show improved functional ability. LTG Duration 09/09 balance Senior Living Goal (LTG) Pt will be able to do SLS for at least 30 sec on LLE to show improved stability to dec risk for further injuries 07/20-12 sec LTG Duration 09/09 gait Short Term Goal (STG) Pt will show good gait mechanics when walking w/o boot w/o pain greater than 2/ 10 STG Duration achieved 07/20 Senior Living Goal (LTG) Pt will be able to return to running, hiking, walking on the beach w/o inc pain LTG Duration 09/09 AROM Short Term Goal (STG) Pt will have DF to neutral in knee ext and flexed position STG Duration achieved 07/20 Auto Painter Goal (LTG) Pt will have full AROM w/o inc pain to allow for greater ease w/activities. LTG Duration 5 Assessment Summary Assessment Pt is making excellent progress w/PT w/much improved ROM, strength and balance. He does still have dec ankle mobility and is slowly progressing to more difficult balance and strength exercises . He was able to to tolerate gentle balance w/o brace on today w/o inc pain. cont PT for strength, balance and dec pain Physical Therapy Plan Frequency and Duration Frequency of Treatment 2x/Week Duration of treatment (weeks) 12 Plan of Care Start Date 06/17/24 Plan of Care End Date 09/09/24 Therapeutic Interventions Therapeutic Interventions Balance Training,Gait Training ,Home Exercise Program,Joint Mobilizations,Manual Therapy, Neuromuscular Re-education, Patient/Caregiver Education, Self-Care/Home Management,Soft Tissue Mobilization,Taping, Therapeutic Activities, Therapeutic Exercises Modalities Cold Pack/Ice Massage,Electric Stimulation,Hot Packs, Infrared Therapy,Ultrasound Next Visit Focus/Plan Next Note Type Treatment Note Next Visit Plan Gentle manual to calf and peroneals and grade 1 to 2 to ankle (avoid 5th MT d/t fx) to work on ankle ROM, try laser, consider US, taping once out of brace; gradually dec brace use
--- NOTE | 2024-07-27 11:31 | PT.OTN ---
Current Diagnoses Sprain of unspecified ligament of left ankle, subsequent encounter (07/27/24) Physical Therapy Treatment Note PT-OP-A Visit Information Start: 06/15/24 16:00 Freq: Status: Active Protocol: Document 07/27/24 10:51 [facility] (Rec: 07/27/24 11:33 [facility] [id number]) Out-Patient Physical Therapy Visit Information Visit Information Visit Type Treatment Note Visit Start Time 10:51 Visit Stop Time 11:31 Visit Number 11/26 Number of FIELD RETURN REPAIRER Visits 1 PT-OP-B Current Condition Start: 06/15/24 16:00 Freq: Status: Active Protocol: Document 06/17/24 09:54 [facility] (Rec: 06/17/24 11:14 [facility] [id number]) Current Condition History of Current Condition Onset Date 05/22 Current Complaints L ankle sprain and 5th MT fx History of Current Condition Pt picked up something and stepped backwards off the porch and twisted. Came to ER and they did ankle xray looked ok. Told him just sprain and was walking on it since they told him it was ok for 10 days . He got stitches out d/t it got cut in hand but walk in didn't look at ankle. Did xray and 5th MT fx and severe med and lat ankle sprain. He hasn' t had any guidance so hasn't done much. He has been in boot since primary appt. Doing ROM at home. When rests for a long time, gets stiff and locks up. Did not give a timeline for the boot but just referred for PT. Hx of R ankle sprains and breaks. In 2014, L ankle had ankle injury w/ant swelling after playing frizbee on feild and lat roll but also pushed into DF. Didn 't have insurance so didn't ahve it checked. Had a chip on L baptiste d/t running into doorframe. Typically runs frequently, except R achilles injury in 2022 so has dec some but does hike and walk a lot. Walks beach, goes swimming. Mostly wearing the boot at home. He has tried small bouts later in the day w/the boot Treatment Goals Patient/Caregiver Goals Be able to hike, run, walk on beach PT-OP-C Subjective Start: 06/15/24 16:00 Freq: Status: Active Protocol: Document 07/27/24 10:51 [facility] (Rec: 07/27/24 11:33 [facility] [id number]) OP-PT Subjective Patient Comments Patient Comments Pt reports doing better. L ankle feeling stronger, wearing brace when out, PT stated didn't need when indoors. He reports when lays on L side or on back lateral ankle feels like strange sensation but no painful. PT-OP-F Manual Assessment Start: 06/15/24 16:00 Freq: Status: Active Protocol: Document 06/17/24 09:54 [facility] (Rec: 06/17/24 11:14 [facility] [id number]) Manual Assessments Soft Tissue Assessment Soft Tissue Mobility Assessment ant ankle swelling and around malleoli PT-OP-G Mobility & Gait Start: 06/15/24 16:00 Freq: Status: Active Protocol: Document 06/17/24 09:54 [facility] (Rec: 06/17/24 11:14 [facility] [id number]) OP Gait Assessment Comments Gait Comments amb w/walking boot w/dec stance time PT-OP-K Range of Motion Start: 06/15/24 16:00 Freq: Status: Active Protocol: Document 07/20/24 13:46 [facility] (Rec: 07/20/24 14:35 [facility] [id number]) Ankle and Foot Goniometric Range of Motion Ankle and Foot Left Active Dorsiflexion with Knee Flexed 2 Dorsiflexion with Knee Extended 0 Plantarflexion 43 Inversion 18 Eversion 18 PT-OP-L Special Tests Start: 06/17/24 11:14 Freq: Status: Active Protocol: Document 06/17/24 09:54 [facility] (Rec: 06/17/24 11:15 [facility] [id number]) Special Tests Foot/Ankle Special Tests ant drawer Comments painful and pt guards so difficult to determine for laxity talar tilt Comments positive for pain and inc laxity PT-OP-M Strength Start: 06/15/24 16:00 Freq: Status: Active Protocol: Document 07/20/24 13:46 [facility] (Rec: 07/20/24 14:35 [facility] [id number]) Ankle/Foot Strength Ankle and Foot Manual Muscle Testing Left Dorsiflexion (L4) 4- Good- Inversion 3 Fair Eversion (S1) 4- Good- Comments strong PF in seated position Toe Strength Toe Manual Muscle Testing Left 2nd Toe Flexion 4+ Good+ Extension 4+ Good+ Comments 2-5 Left Great Toe Flexion 4+ Good+ Extension 4+ Good+ PT-OP-Q Treatments Start: 06/15/24 16:00 Freq: Status: Active Protocol: Document 07/27/24 10:51 [facility] (Rec: 07/27/24 11:33 [facility] [id number]) Cardio Equipment Recumbent Stepper (Sci-Fit) Duration (Minutes) 6 Resistance 3 Seat Position 11 Other 68 SPM, BLEs Gym Equipment Shuttle Recovery heel raises Details good form, no pain (brace doffed) Resistance 37#> 50# 2 navy Reps/Time 2x10 Therapeutic Exercises Standing Exercises resisted marching Standing Exercise Name reviewed Side bilateral Resistance Tb #3 around arches Reps/Minutes 10 x2 sets Comments cued WBOS resisted stepping Standing Exercise Name lateral, Fwd, Bwd- reviewed Resistance GTb at forefoot Reps/Minutes 2 laps each direction 10 ft Comments cued allow ankle mobility DF raises Standing Exercise Name review HEP Side bilateral Resistance AROM Equipment Used back to wall/rail Reps/Minutes 2x10 Comments no brace Neuro Re-Education Treatment Balance Activities SLS Comments L 30 sec little wobbly but self midelne recovery R 30 sec very steady tandem Details cues equal wt on LEs Comments stationary: L fwd 30 sec steady R fwd 30 sec steady walkin ft x2 laps- steady post cues scap and posture PT-OP-R Modalities Start: 06/15/24 16:00 Freq: Status: Active Protocol: Document 07/27/24 10:51 [facility] (Rec: 07/27/24 11:33 [facility] [id number]) Infrared Treatment Treatment L ankle Comments unavailable Ultrasound Therapy Treatment L ankle Patient Position Sidelying Applicator Size (cm2) 2 Frequency Setting (mHz) 3 Intensity Setting (w/cm2) 1.0 PT-OP-T Assessment and Plan Start: 06/15/24 16:00 Freq: Status: Active Protocol: Document 07/27/24 10:51 [facility] (Rec: 07/27/24 11:33 [facility] [id number]) Physical Therapy Assessment Goals LEFS Impairment 38/80 Short Term Goal (STG) Pt will improve score of LEFS to at least 50/80 to show improved functional ability. STG Duration achieved to 56/80 317 Senior Living Goal (LTG) Pt will improve score of LEFS to at least 70/80 to show improved functional ability. LTG Duration 09/09 balance Senior Living Goal (LTG) Pt will be able to do SLS for at least 30 sec on LLE to show improved stability to dec risk for further injuries 07/20-12 sec LTG Duration 09/09 gait Short Term Goal (STG) Pt will show good gait mechanics when walking w/o boot w/o pain greater than 2/ 10 STG Duration achieved 07/20 Senior Living Goal (LTG) Pt will be able to return to running, hiking, walking on the beach w/o inc pain LTG Duration 09/09 AROM Short Term Goal (STG) Pt will have DF to neutral in knee ext and flexed position STG Duration achieved 07/20 Clinical Psychiatrist Goal (LTG) Pt will have full AROM w/o inc pain to allow for greater ease w/activities. LTG Duration 09/09 Assessment Summary Assessment Pt tolerated US well on L ankle, laser not available. Tolerated progressed resisted heel raises. Is improving on stability today SLS up to 30 sec and tandem walking more midline with cuing for posture /scap enagement improved heel toe mobility. Woudl benefit from progression uneven surfaces next tx. Physical Therapy Plan Frequency and Duration Frequency of Treatment 2x/Week Duration of treatment (weeks) 12 Plan of Care Start Date 06/17/24 Plan of Care End Date 09/09/24 Therapeutic Interventions Therapeutic Interventions Balance Training,Gait Training ,Home Exercise Program,Joint Mobilizations,Manual Therapy, Neuromuscular Re-education, Patient/Caregiver Education, Self-Care/Home Management,Soft Tissue Mobilization,Taping, Therapeutic Activities, Therapeutic Exercises Modalities Cold Pack/Ice Massage,Electric Stimulation,Hot Packs, Infrared Therapy,Ultrasound Next Visit Focus/Plan Next Note Type Treatment Note Next Visit Plan Continue uneven stabiltiy LLE. Gentle manual to calf and peroneals and grade 1 to 2 to ankle (avoid 5th MT d/t fx) to work on ankle ROM, try laser, consider US, taping once out of brace; gradually dec brace use
--- NOTE | 2024-07-30 09:01 | PT.OTN ---
Current Diagnoses Sprain of unspecified ligament of left ankle, subsequent encounter (07/30/24) Physical Therapy Treatment Note PT-OP-A Visit Information Start: 06/15/24 16:00 Freq: Status: Active Protocol: Document 07/30/24 08:19 [facility] (Rec: 07/30/24 09:04 [facility] [id number]) Out-Patient Physical Therapy Visit Information Visit Information Visit Type Treatment Note Visit Start Time 08:19 Visit Stop Time 09:01 Visit Number 12/27 Number of PRESIDENTIAL HELICOPTER CREW CHIEF Visits 2 PT-OP-B Current Condition Start: 06/15/24 16:00 Freq: Status: Active Protocol: Document 06/17/24 09:54 [facility] (Rec: 06/17/24 11:14 [facility] [id number]) Current Condition History of Current Condition Onset Date 05/22 Current Complaints L ankle sprain and 5th MT fx History of Current Condition Pt picked up something and stepped backwards off the porch and twisted. Came to ER and they did ankle xray looked ok. Told him just sprain and was walking on it since they told him it was ok for 10 days . He got stitches out d/t it got cut in hand but walk in didn't look at ankle. Did xray and 5th MT fx and severe med and lat ankle sprain. He hasn' t had any guidance so hasn't done much. He has been in boot since primary appt. Doing ROM at home. When rests for a long time, gets stiff and locks up. Did not give a timeline for the boot but just referred for PT. Hx of R ankle sprains and breaks. In 2014, L ankle had ankle injury w/ant swelling after playing frizbee on feild and lat roll but also pushed into DF. Didn 't have insurance so didn't ahve it checked. Had a chip on L [place] d/t running into doorframe. Typically runs frequently, except R achilles injury in 2022 so has dec some but does hike and walk a lot. Walks beach, goes swimming. Mostly wearing the boot at home. He has tried small bouts later in the day w/the boot Treatment Goals Patient/Caregiver Goals Be able to hike, run, walk on beach PT-OP-C Subjective Start: 06/15/24 16:00 Freq: Status: Active Protocol: Document 07/30/24 08:19 SP (Rec: 07/30/24 09:04 SP [id number]) OP-PT Subjective Patient Comments Patient Comments Pt reports compliant with HEP and able to SLS up ot 40 sec. Thinks the US helped L ankle feel better. Has a Versa Climber machine home and wants to incorporate cardio, discussed perform more strengthening vs cardio for return to PLOF while healing with brace donned. Pt reports no follow up with physician and told trust the PT for allowance progression activitiy. Pt considering finding dr more local, TBD. PT-OP-F Manual Assessment Start: 06/15/24 16:00 Freq: Status: Active Protocol: Document 06/17/24 09:54 [facility] (Rec: 06/17/24 11:14 [facility] [id number]) Manual Assessments Soft Tissue Assessment Soft Tissue Mobility Assessment ant ankle swelling and around malleoli PT-OP-G Mobility & Gait Start: 06/15/24 16:00 Freq: Status: Active Protocol: Document 06/17/24 09:54 [facility] (Rec: 06/17/24 11:14 [facility] [id number]) OP Gait Assessment Comments Gait Comments amb w/walking boot w/dec stance time PT-OP-K Range of Motion Start: 06/15/24 16:00 Freq: Status: Active Protocol: Document 07/20/24 13:46 [facility] (Rec: 07/20/24 14:35 [facility] [id number]) Ankle and Foot Goniometric Range of Motion Ankle and Foot Left Active Dorsiflexion with Knee Flexed 2 Dorsiflexion with Knee Extended 0 Plantarflexion 43 Inversion 18 Eversion 18 PT-OP-L Special Tests Start: 06/17/24 11:14 Freq: Status: Active Protocol: Document 06/17/24 09:54 [facility] (Rec: 06/17/24 11:15 [facility] [id number]) Special Tests Foot/Ankle Special Tests ant drawer Comments painful and pt guards so difficult to determine for laxity talar tilt Comments positive for pain and inc laxity PT-OP-M Strength Start: 06/15/24 16:00 Freq: Status: Active Protocol: Document 07/20/24 13:46 [facility] (Rec: 07/20/24 14:35 [facility] [id number]) Ankle/Foot Strength Ankle and Foot Manual Muscle Testing Left Dorsiflexion (L4) 4- Good- Inversion 3 Fair Eversion (S1) 4- Good- Comments strong PF in seated position Toe Strength Toe Manual Muscle Testing Left 2nd Toe Flexion 4+ Good+ Extension 4+ Good+ Comments 2-5 Left Great Toe Flexion 4+ Good+ Extension 4+ Good+ PT-OP-Q Treatments Start: 06/15/24 16:00 Freq: Status: Active Protocol: Document 07/30/24 08:19 SP (Rec: 07/30/24 09:04 SP [id number]) Cardio Equipment Elliptical Duration (Minutes) 6 Resistance 4 (brace doffed) no pain Other BUE on moving handles, 63spm Gym Equipment Shuttle Recovery heel raises Details good form, no pain (brace doffed) Resistance 50# 2 navy Reps/Time 2x15 Shuttle Balance Red Details WBOS, NBOS, Stagger Stance Comments wt shift, HTs, EC up to 30 sec each position occ x2 Min A over wt shift retro Therapeutic Exercises Standing Exercises lunges Standing Exercise Name 1. stationary brace doffed 2. walking lunges brace donned Equipment Used added home declined HO Reps/Minutes 1. 5 reps each LE 2. 10 ft x2 laps Comments cued KAY and slower pacing- no pain resisted stepping Comments verbal compliance home DF raises Comments verbal review Neuro Re-Education Treatment Balance Activities SLS Comments verbal review performing home PT-OP-R Modalities Start: 06/15/24 16:00 Freq: Status: Active Protocol: Document 07/30/24 08:19 SP (Rec: 07/30/24 09:04 SP [id number]) Ultrasound Therapy Treatment L ankle Patient Position Sidelying Coupling Medium Ultrasound Gel Applicator Size (cm2) 2 Frequency Setting (mHz) 3 Duty Cycle 50% Intensity Setting (w/cm2) 1.0 Comments Good response PT-OP-T Assessment and Plan Start: 06/15/24 16:00 Freq: Status: Active Protocol: Document 07/30/24 08:19 SP (Rec: 07/30/24 09:04 SP [id number]) Physical Therapy Assessment Goals LEFS Impairment 38/80 Short Term Goal (STG) Pt will improve score of LEFS to at least 50/80 to show improved functional ability. STG Duration achieved to 56/80 317 Senior Care Goal (LTG) Pt will improve score of LEFS to at least 70/80 to show improved functional ability. LTG Duration 09/09 balance Flour Worker Goal (LTG) Pt will be able to do SLS for at least 30 sec on LLE to show improved stability to dec risk for further injuries 07/20-12 sec LTG Duration 09/09 gait Short Term Goal (STG) Pt will show good gait mechanics when walking w/o boot w/o pain greater than 2/ 10 STG Duration achieved 07/20 Flour Worker Goal (LTG) Pt will be able to return to running, hiking, walking on the beach w/o inc pain LTG Duration 09/09 AROM Short Term Goal (STG) Pt will have DF to neutral in knee ext and flexed position STG Duration achieved 07/20 Flour Worker Goal (LTG) Pt will have full AROM w/o inc pain to allow for greater ease w/activities. LTG Duration 09/09 Assessment Summary Assessment Pt tolerated progression cardio ET today for safety use outside PT non impact, PRESIDENTIAL HELICOPTER CREW CHIEF stated Mountain climber as pt described should be ok as well , suggested keeping ankle brace donned for now till sees PT again. Improved ankle strategies during shuttle balance. Porgressed stationary and walking lunges cues for foot alignment, slower pacing and trunk alignment with TA support with brief stop between each step for stabiltiy, improved form and stability with reps. Instructed to to continue home , declined HOs. Doesn't have a follow up with physician and thinking about finding 1 more local. Pt report no pain with all activities, just challenging bal during lunges. Physical Therapy Plan Frequency and Duration Frequency of Treatment 2x/Week Duration of treatment (weeks) 12 Plan of Care Start Date 06/17/24 Plan of Care End Date 09/09/24 Therapeutic Interventions Therapeutic Interventions Balance Training,Gait Training ,Home Exercise Program,Joint Mobilizations,Manual Therapy, Neuromuscular Re-education, Patient/Caregiver Education, Self-Care/Home Management,Soft Tissue Mobilization,Taping, Therapeutic Activities, Therapeutic Exercises Modalities Cold Pack/Ice Massage,Electric Stimulation,Hot Packs, Infrared Therapy,Ultrasound Next Visit Focus/Plan Next Note Type Treatment Note Next Visit Plan Continue uneven stabiltiy LLE, recheck lunges, and discuss cardio non impact. POC: Gentle manual to calf and peroneals and grade 1 to 2 to ankle (avoid 5th MT d/t fx) to work on ankle ROM, try laser, consider US, taping once out of brace; gradually dec brace use
--- NOTE | 2024-08-04 09:00 | PT.OTN ---
Current Diagnoses Sprain of unspecified ligament of left ankle, subsequent encounter (08/04/24) Physical Therapy Treatment Note PT-OP-A Visit Information Start: 06/15/24 16:00 Freq: Status: Active Protocol: Document 08/04/24 08:22 SP (Rec: 08/04/24 09:04 SP [id number]) Out-Patient Physical Therapy Visit Information Visit Information Visit Type Treatment Note Visit Start Time 08:22 Visit Stop Time 09:00 Visit Number 01/27 Number of TELESCOPE MAINTENANCE Visits 3 PT-OP-B Current Condition Start: 06/15/24 16:00 Freq: Status: Active Protocol: Document 06/17/24 09:54 [facility] (Rec: 06/17/24 11:14 [facility] [id number]) Current Condition History of Current Condition Onset Date 05/22 Current Complaints L ankle sprain and 5th MT fx History of Current Condition Pt picked up something and stepped backwards off the porch and twisted. Came to ER and they did ankle xray looked ok. Told him just sprain and was walking on it since they told him it was ok for 10 days . He got stitches out d/t it got cut in hand but walk in didn't look at ankle. Did xray and 5th MT fx and severe med and lat ankle sprain. He hasn' t had any guidance so hasn't done much. He has been in boot since primary appt. Doing ROM at home. When rests for a long time, gets stiff and locks up. Did not give a timeline for the boot but just referred for PT. Hx of R ankle sprains and breaks. In 2014, L ankle had ankle injury w/ant swelling after playing frizbee on feild and lat roll but also pushed into DF. Didn 't have insurance so didn't ahve it checked. Had a chip on L baptiste d/t running into doorframe. Typically runs frequently, except R achilles injury in 2022 so has dec some but does hike and walk a lot. Walks beach, goes swimming. Mostly wearing the boot at home. He has tried small bouts later in the day w/the boot Treatment Goals Patient/Caregiver Goals Be able to hike, run, walk on beach PT-OP-C Subjective Start: 06/15/24 16:00 Freq: Status: Active Protocol: Document 08/04/24 08:22 SP (Rec: 08/04/24 09:04 SP [id number]) OP-PT Subjective Patient Comments Patient Comments Pt reports doing well, has been doing more walking level surfaces around 30-45 min approx 2.5 miles, with brace donned L ankle. Did some walking on beach with braced donned little ankle pain. PT-OP-F Manual Assessment Start: 06/15/24 16:00 Freq: Status: Active Protocol: Document 06/17/24 09:54 [facility] (Rec: 06/17/24 11:14 [facility] [id number]) Manual Assessments Soft Tissue Assessment Soft Tissue Mobility Assessment ant ankle swelling and around malleoli PT-OP-G Mobility & Gait Start: 06/15/24 16:00 Freq: Status: Active Protocol: Document 06/17/24 09:54 [facility] (Rec: 06/17/24 11:14 [facility] [id number]) OP Gait Assessment Comments Gait Comments amb w/walking boot w/dec stance time PT-OP-K Range of Motion Start: 06/15/24 16:00 Freq: Status: Active Protocol: Document 07/20/24 13:46 [facility] (Rec: 07/20/24 14:35 [facility] [id number]) Ankle and Foot Goniometric Range of Motion Ankle and Foot Left Active Dorsiflexion with Knee Flexed 2 Dorsiflexion with Knee Extended 0 Plantarflexion 43 Inversion 18 Eversion 18 PT-OP-L Special Tests Start: 06/17/24 11:14 Freq: Status: Active Protocol: Document 06/17/24 09:54 [facility] (Rec: 06/17/24 11:15 [facility] [id number]) Special Tests Foot/Ankle Special Tests ant drawer Comments painful and pt guards so difficult to determine for laxity talar tilt Comments positive for pain and inc laxity PT-OP-M Strength Start: 06/15/24 16:00 Freq: Status: Active Protocol: Document 07/20/24 13:46 [facility] (Rec: 07/20/24 14:35 [facility] [id number]) Ankle/Foot Strength Ankle and Foot Manual Muscle Testing Left Dorsiflexion (L4) 4- Good- Inversion 3 Fair Eversion (S1) 4- Good- Comments strong PF in seated position Toe Strength Toe Manual Muscle Testing Left 2nd Toe Flexion 4+ Good+ Extension 4+ Good+ Comments 2-5 Left Great Toe Flexion 4+ Good+ Extension 4+ Good+ PT-OP-Q Treatments Start: 06/15/24 16:00 Freq: Status: Active Protocol: Document 08/04/24 08:22 SP (Rec: 08/04/24 09:04 SP [id number]) Cardio Equipment Elliptical Duration (Minutes) 6 Resistance 5 Other BUE moving handles, 63spm ( braced donned today, forgot doff) Gym Equipment Shuttle Recovery heel raises Details good form, no pain (brace doffed) Resistance 1. Double 75# 3 navy 2. navy bands 2. Single: R 62#, L 37#> 50# Reps/Time 1. Double 20 2. Single 2x10 alternating Therapeutic Exercises Standing Exercises SL RDL Standing Exercise Name trialed in PT only- challenging bal. Side bilateral Equipment Used AROM dowel BUEs slide down thigh to knee Reps/Minutes 2x 5 reps each side Comments cued opp stance LE back lift, soft knee bend stance LE, slower return stand SL sliders Standing Exercise Name added to HEP with HO Side bilateral Equipment Used slider under moving foot Reps/Minutes 5 reps (12, 3/9, 6 o'clock) Comments cued hip hinge mainly stance SLS on stationary LE with ankle mobility lunges Standing Exercise Name stationary brace doffed Equipment Used rail support bal Reps/Minutes 10 reps each LE Comments cued hip hinge buttocks band, knee alignment with feet ankle mobility Side bilateral Resistance AROM Knee to wall Reps/Minutes 5 reps each Comments R 9.5cm, L 3.5 cm (toe to wall) Neuro Re-Education Treatment Balance Activities BOSU Details B LE bal Equipment iside //bars PRN contact Comments balloon volley, cued level ankles SLS Comments L 30 sec little wobbly but self midelne recovery R 30 sec very steady PT-OP-R Modalities Start: 06/15/24 16:00 Freq: Status: Active Protocol: Document 07/30/24 08:19 SP (Rec: 07/30/24 09:04 SP [id number]) Ultrasound Therapy Treatment L ankle Patient Position Sidelying Coupling Medium Ultrasound Gel Applicator Size (cm2) 2 Frequency Setting (mHz) 3 Duty Cycle 50% Intensity Setting (w/cm2) 1.0 Comments Good response PT-OP-T Assessment and Plan Start: 06/15/24 16:00 Freq: Status: Active Protocol: Document 08/04/24 08:22 SP (Rec: 08/04/24 09:04 SP [id number]) Physical Therapy Assessment Goals LEFS Impairment 38/80 Short Term Goal (STG) Pt will improve score of LEFS to at least 50/80 to show improved functional ability. STG Duration achieved to 56/80 07/20 Stem Lead Former Goal (LTG) Pt will improve score of LEFS to at least 70/80 to show improved functional ability. LTG Duration 09/09 balance Stem Lead Former Goal (LTG) Pt will be able to do SLS for at least 30 sec on LLE to show improved stability to dec risk for further injuries 07/20-12 sec LTG Duration 09/09 gait Short Term Goal (STG) Pt will show good gait mechanics when walking w/o boot w/o pain greater than 2/ 10 STG Duration achieved 07/20 Stem Lead Former Goal (LTG) Pt will be able to return to running, hiking, walking on the beach w/o inc pain 08/04/24: walked out on beach little discomfort with brace donned. LTG Duration 09/09 progressing 08/04/24 AROM Short Term Goal (STG) Pt will have DF to neutral in knee ext and flexed position STG Duration achieved 07/20 Stem Lead Former Goal (LTG) Pt will have full AROM w/o inc pain to allow for greater ease w/activities. LTG Duration 09/09 Assessment Summary Assessment Pt tolerted increased resistance during ankle heel raises on shuttle recovery to day, DL and added SL. Good form and tolerance ET today. Progressed SL ther ex today with cues for knee and ankle alignment with proper form during lunges, SL leg slider ( added for home), Challenged by SL RDL will continue next tx. Improving SL time end tx after bal activities. Physical Therapy Plan Frequency and Duration Frequency of Treatment 2x/Week Duration of treatment (weeks) 12 Plan of Care Start Date 06/17/24 Plan of Care End Date 09/09/24 Therapeutic Interventions Therapeutic Interventions Balance Training,Gait Training ,Home Exercise Program,Joint Mobilizations,Manual Therapy, Neuromuscular Re-education, Patient/Caregiver Education, Self-Care/Home Management,Soft Tissue Mobilization,Taping, Therapeutic Activities, Therapeutic Exercises Modalities Cold Pack/Ice Massage,Electric Stimulation,Hot Packs, Infrared Therapy,Ultrasound Next Visit Focus/Plan Next Note Type Treatment Note Next Visit Plan Continue uneven stabiltiy LLE, recheck lunges, and discuss cardio non impact. POC: Gentle manual to calf and peroneals and grade 1 to 2 to ankle (avoid 5th MT d/t fx) to work on ankle ROM, try laser, consider US, taping once out of brace; gradually dec brace use
--- NOTE | 2024-08-13 09:01 | PT.OTN ---
Current Diagnoses Sprain of unspecified ligament of left ankle, subsequent encounter (08/13/24) Physical Therapy Treatment Note PT-OP-A Visit Information Start: 06/15/24 16:00 Freq: Status: Active Protocol: Document 08/13/24 08:18 [facility] (Rec: 08/13/24 08:59 [facility] [id number]) Out-Patient Physical Therapy Visit Information Visit Information Visit Type Treatment Note Visit Start Time 08:20 Visit Stop Time 09:00 Visit Number 02/26 Number of BRAZING MACHINE SETTER Visits 0 PT-OP-B Current Condition Start: 06/15/24 16:00 Freq: Status: Active Protocol: Document 06/17/24 09:54 [facility] (Rec: 06/17/24 11:14 [facility] [id number]) Current Condition History of Current Condition Onset Date 05/22 Current Complaints L ankle sprain and 5th MT fx History of Current Condition Pt picked up something and stepped backwards off the porch and twisted. Came to ER and they did ankle xray looked ok. Told him just sprain and was walking on it since they told him it was ok for 10 days . He got stitches out d/t it got cut in hand but walk in didn't look at ankle. Did xray and 5th MT fx and severe med and lat ankle sprain. He hasn' t had any guidance so hasn't done much. He has been in boot since primary appt. Doing ROM at home. When rests for a long time, gets stiff and locks up. Did not give a timeline for the boot but just referred for PT. Hx of R ankle sprains and breaks. In 2014, L ankle had ankle injury w/ant swelling after playing frizbee on feild and lat roll but also pushed into DF. Didn 't have insurance so didn't ahve it checked. Had a chip on L baptiste d/t running into doorframe. Typically runs frequently, except R achilles injury in 2022 so has dec some but does hike and walk a lot. Walks beach, goes swimming. Mostly wearing the boot at home. He has tried small bouts later in the day w/the boot Treatment Goals Patient/Caregiver Goals Be able to hike, run, walk on beach PT-OP-C Subjective Start: 06/15/24 16:00 Freq: Status: Active Protocol: Document 08/13/24 08:18 [facility] (Rec: 08/13/24 08:59 [facility] [id number]) OP-PT Subjective Patient Comments Patient Comments Pt has been only using brace on uneven surfaces and doing some pickle ball. Heel is where most pain is. has been walking up to 4 miles with hills. PT-OP-F Manual Assessment Start: 06/15/24 16:00 Freq: Status: Active Protocol: Document 06/17/24 09:54 [facility] (Rec: 06/17/24 11:[id number] Manual Assessments Soft Tissue Assessment Soft Tissue Mobility Assessment ant ankle swelling and around malleoli PT-OP-G Mobility & Gait Start: 06/15/24 16:00 Freq: Status: Active Protocol: Document 06/17/24 09:54 [facility] (Rec: 06/17/24 11:14 [id number] OP Gait Assessment Comments Gait Comments amb w/walking boot w/dec stance time PT-OP-K Range of Motion Start: 06/15/24 16:00 Freq: Status: Active Protocol: Document 07/20/24 13:46 [facility] (Rec: 07/20/24 14:35 [facility] [id number]) Ankle and Foot Goniometric Range of Motion Ankle and Foot Left Active Dorsiflexion with Knee Flexed 2 Dorsiflexion with Knee Extended 0 Plantarflexion 43 Inversion 18 Eversion 18 PT-OP-L Special Tests Start: 06/17/24 11:14 Freq: Status: Active Protocol: Document 06/17/24 09:54 [facility] (Rec: 06/17/24 11:15 [facility] [id number]) Special Tests Foot/Ankle Special Tests ant drawer Comments painful and pt guards so difficult to determine for laxity talar tilt Comments positive for pain and inc laxity PT-OP-M Strength Start: 06/15/24 16:00 Freq: Status: Active Protocol: Document 07/20/24 13:46 [facility] (Rec: 07/20/24 14:35 [facility] [id number]) Ankle/Foot Strength Ankle and Foot Manual Muscle Testing Left Dorsiflexion (L4) 4- Good- Inversion 3 Fair Eversion (S1) 4- Good- Comments strong PF in seated position Toe Strength Toe Manual Muscle Testing Left 2nd Toe Flexion 4+ Good+ Extension 4+ Good+ Comments 2-5 Left Great Toe Flexion 4+ Good+ Extension 4+ Good+ PT-OP-Q Treatments Start: 06/15/24 16:00 Freq: Status: Active Protocol: Document 08/13/24 08:18 [facility] (Rec: 08/13/24 08:59 [facility] [id number]) Therapeutic Exercises Standing Exercises squat Side bilateral Reps/Minutes 12 Comments cues knee and butt position ankle mobility Standing Exercise Name 1/2 kneel self ankle mob Side bilateral Equipment Used lvl 5 band Reps/Minutes 15 Comments cues knee toward middle of foot Manual Therapy Treatment Consent Patient gave verbal consent for manual Yes treatment Soft Tissue Mobilization calf Body Location L achilles and calf Mobilization Type Rolling,Sustained Pressure, Other Joint Mobilizations L ankle Joint L Comments distraction and lat tilt calcaneus distraction and lat tilt and AP talus supine c/r and standing MWM w/belt AP talus med cuneiform 1-2 c/r over foam roll Neuro Re-Education Treatment Balance Activities BOSU Comments 1. step up to SLS x10 B SLS Comments 1. SLS EC B 2. y Reach x5 B 3. SL squat in mirror x12 B- chair behind-hand on table- cues for sit back Coordination Activities jumping Comments 1. squat [id number] cues knees in mirror 2. pogo jumps 2x10 3. SL hop in place 2x10 4. skaters (mini range) x10 ea LE 5. DL lat line jumps x10 6. DL fwd/back line jumps x10 PT-OP-R Modalities Start: 06/15/24 16:00 Freq: Status: Active Protocol: Document 07/30/24 08:19 SP (Rec: 07/30/24 09:04 SP [id number]) Ultrasound Therapy Treatment L ankle Patient Position Sidelying Coupling Medium Ultrasound Gel Applicator Size (cm2) 2 Frequency Setting (mHz) 3 Duty Cycle 50% Intensity Setting (w/cm2) 1.0 Comments Good response PT-OP-T Assessment and Plan Start: 06/15/24 16:00 Freq: Status: Active Protocol: Document 08/13/24 08:18 [facility] (Rec: 08/13/24 08:59 [facility] [id number]) Physical Therapy Assessment Goals LEFS Impairment 38/80 Short Term Goal (STG) Pt will improve score of LEFS to at least 50/80 to show improved functional ability. STG Duration achieved to 56/80 07/20 Tailing Hand Goal (LTG) Pt will improve score of LEFS to at least 70/80 to show improved functional ability. LTG Duration 09/09 balance Tailing Hand Goal (LTG) Pt will be able to do SLS for at least 30 sec on LLE to show improved stability to dec risk for further injuries 07/20-12 sec LTG Duration 09/09 gait Short Term Goal (STG) Pt will show good gait mechanics when walking w/o boot w/o pain greater than 2/ 10 STG Duration achieved 07/20 Custodial Goal (LTG) Pt will be able to return to running, hiking, walking on the beach w/o inc pain 08/04/24: walked out on beach little discomfort with brace donned. LTG Duration 09/09 progressing 08/04/24 AROM Short Term Goal (STG) Pt will have DF to neutral in knee ext and flexed position STG Duration achieved 07/20 Custodial Goal (LTG) Pt will have full AROM w/o inc pain to allow for greater ease w/activities. LTG Duration 09/09 Assessment Summary Assessment Pt tolerated progressed challenge today to work towards running. He still struggles on LLE >R for balance EC or on uneven surfaces and will require further work on this. improving ROM Physical Therapy Plan Frequency and Duration Frequency of Treatment 2x/Week Duration of treatment (weeks) 12 Plan of Care Start Date 06/17/24 Plan of Care End Date 09/09/24 Next Visit Focus/Plan Next Note Type Treatment Note Next Visit Plan uneven surfaces and progress plyometric towards return to running manual to improve ROM
--- NOTE | 2024-08-17 09:00 | PT-OP ANOTE ---
Pt cancelled less than 24 hrs, started a new job and unable to attend PT appt today. Chart review next visit is with PT then last visit with [employer] 08/31/24, is approved visits up to2x/wk through end Aug.
--- NOTE | 2024-08-24 08:58 | PT.OTN ---
Current Diagnoses Sprain of unspecified ligament of left ankle, subsequent encounter (08/24/24) Physical Therapy Treatment Note PT-OP-A Visit Information Start: 06/15/24 16:00 Freq: Status: Active Protocol: Document 08/24/24 08:19 [facility] (Rec: 08/24/24 08:58 [facility] [id number]) Out-Patient Physical Therapy Visit Information Visit Information Visit Type Progress Note Visit Start Time 08:19 Visit Stop Time 08:59 Visit Number 03/29 Number of [employer]IST Visits 0 PT-OP-B Current Condition Start: 06/15/24 16:00 Freq: Status: Active Protocol: Document 06/17/24 09:54 [facility] (Rec: 06/17/24 11:14 [facility] [id number]) Current Condition History of Current Condition Onset Date 05/22 Current Complaints L ankle sprain and 5th MT fx History of Current Condition Pt picked up something and stepped backwards off the porch and twisted. Came to ER and they did ankle xray looked ok. Told him just sprain and was walking on it since they told him it was ok for 10 days . He got stitches out d/t it got cut in hand but walk in didn't look at ankle. Did xray and 5th MT fx and severe med and lat ankle sprain. He hasn' t had any guidance so hasn't done much. He has been in boot since primary appt. Doing ROM at home. When rests for a long time, gets stiff and locks up. Did not give a timeline for the boot but just referred for PT. Hx of R ankle sprains and breaks. In 2014, L ankle had ankle injury w/ant swelling after playing frizbee on feild and lat roll but also pushed into DF. Didn 't have insurance so didn't ahve it checked. Had a chip on L baptiste d/t running into doorframe. Typically runs frequently, except R achilles injury in 2022 so has dec some but does hike and walk a lot. Walks beach, goes swimming. Mostly wearing the boot at home. He has tried small bouts later in the day w/the boot Treatment Goals Patient/Caregiver Goals Be able to hike, run, walk on beach PT-OP-C Subjective Start: 06/15/24 16:00 Freq: Status: Active Protocol: Document 08/24/24 08:19 [facility] (Rec: 08/24/24 08:58 [facility] [id number]) OP-PT Subjective Patient Comments Patient Comments has been moving and carrying and going up/downs tairs ok. He has been doing some jogs w/ running. only wearing brace for hiking or pickleball PT-OP-F Manual Assessment Start: 06/15/24 16:00 Freq: Status: Active Protocol: Document 06/17/24 09:54 [facility] (Rec: 06/17/24 11:14 [id number] Manual Assessments Soft Tissue Assessment Soft Tissue Mobility Assessment ant ankle swelling and around malleoli PT-OP-G Mobility & Gait Start: 06/15/24 16:00 Freq: Status: Active Protocol: Document 06/17/24 09:54 [facility] (Rec: 06/17/24 11:14 [facility] [id number]) OP Gait Assessment Comments Gait Comments amb w/walking boot w/dec stance time PT-OP-K Range of Motion Start: 06/15/24 16:00 Freq: Status: Active Protocol: Document 08/24/24 08:19 [facility] (Rec: 08/24/24 08:58 [facility] [id number]) Ankle and Foot Goniometric Range of Motion Ankle and Foot Left Active Dorsiflexion with Knee Flexed 7 Dorsiflexion with Knee Extended 3 Plantarflexion 42 Inversion 27 Eversion 20 PT-OP-L Special Tests Start: 06/17/24 11:14 Freq: Status: Active Protocol: Document 06/17/24 09:54 [facility] (Rec: 06/17/24 11:15 [facility] [id number]) Special Tests Foot/Ankle Special Tests ant drawer Comments painful and pt guards so difficult to determine for laxity talar tilt Comments positive for pain and inc laxity PT-OP-M Strength Start: 06/15/24 16:00 Freq: Status: Active Protocol: Document 08/24/24 08:19 [facility] (Rec: 08/24/24 08:58 [facility] [id number]) Ankle/Foot Strength Ankle and Foot Manual Muscle Testing Left Dorsiflexion (L4) 5 Normal Inversion 4 Good Eversion (S1) 5 Normal Comments 20 heel raises PT-OP-Q Treatments Start: 06/15/24 16:00 Freq: Status: Active Protocol: Document 08/24/24 08:19 [facility] (Rec: 08/24/24 08:58 [facility] [id number]) Therapeutic Exercises Sitting Exercises ankle strengthening Sitting Exercise Name inversion Side left Equipment Used L3 Reps/Minutes 15 reps AROM Sitting Exercise Name AROM measurement and MMT Side left Standing Exercises squat Standing Exercise Name 1. DL 2. SL Side bilateral Equipment Used 1. DL 10lb in BUEs Reps/Minutes 10 ea Comments cues control and knee position SL RDL Standing Exercise Name SL Side bilateral Reps/Minutes 10 ea Comments cues control Neuro Re-Education Treatment Balance Activities BOSU Comments 1. step up to SLS x10 B 2. squat blue and black side x10 ea 3. lat lunge x10 B 4. SLS blue and black side B SLS Comments 1. B trials 2. EC B 3. Y reach x5 ea 4. SLS blue foam B trials 5. SL w/ball toss 3.3 lb w/PT B Coordination Activities jumping Comments 1. squat alrszy20 cues knees in mirror 2. pogo jumps 20x 3. SL hop in place x10 4. skaters x10 ea LE 5. SL lat line jumps x10 6. SL fwd/back line jumps x10 7. Switch jumps x8 B PT-OP-R Modalities Start: 06/15/24 16:00 Freq: Status: Active Protocol: Document 07/30/24 08:19 [facility] (Rec: 07/30/24 09:04 [facility] [id number]) Ultrasound Therapy Treatment L ankle Patient Position Sidelying Coupling Medium Ultrasound Gel Applicator Size (cm2) 2 Frequency Setting (mHz) 3 Duty Cycle 50% Intensity Setting (w/cm2) 1.0 Comments Good response PT-OP-T Assessment and Plan Start: 06/15/24 16:00 Freq: Status: Active Protocol: Document 08/24/24 08:19 [facility] (Rec: 08/24/24 08:58 [facility] [id number]) Physical Therapy Assessment Goals LEFS Impairment 38/80 Short Term Goal (STG) Pt will improve score of LEFS to at least 50/80 to show improved functional ability. STG Duration achieved to 56/80 3/17 Assisted Goal (LTG) Pt will improve score of LEFS to at least 70/80 to show improved functional ability. LTG Duration achievd to 73 4 balance Assisted Goal (LTG) Pt will be able to do SLS for at least 30 sec on LLE to show improved stability to dec risk for further injuries 07/20-12 sec LTG Duration achieved 08/24 gait Short Term Goal (STG) Pt will show good gait mechanics when walking w/o boot w/o pain greater than 2/ 10 STG Duration achieved 07/20 Assisted Goal (LTG) Pt will be able to return to running, hiking, walking on the beach w/o inc pain 08/04/24: walked out on beach little discomfort with brace donned. 08/24-able to w/brace, starting small bits of running during walks LTG Duration 09/09 progressing 08/04/24 AROM Short Term Goal (STG) Pt will have DF to neutral in knee ext and flexed position STG Duration achieved 07/20 Assisted Goal (LTG) Pt will have full AROM w/o inc pain to allow for greater ease w/activities. LTG Duration achieved 08/24 Assessment Summary Assessment Pt making excellent progress w /ROM and strength overall. B alance cont to improve but be a problem for age based ability. Does deviate some when on SL still and is challenged by dynamic SL activities. COnt PT for strength and balance. Physical Therapy Plan Frequency and Duration Frequency of Treatment 2x/Week Duration of treatment (weeks) 12 Plan of Care Start Date 06/17/24 Plan of Care End Date 09/09/24 Therapeutic Interventions Therapeutic Interventions Balance Training,Gait Training ,Home Exercise Program,Joint Mobilizations,Manual Therapy, Neuromuscular Re-education, Patient/Caregiver Education, Self-Care/Home Management,Soft Tissue Mobilization,Taping, Therapeutic Activities, Therapeutic Exercises Modalities Cold Pack/Ice Massage,Electric Stimulation,Hot Packs, Infrared Therapy,Ultrasound Next Visit Focus/Plan Next Note Type Treatment Note Next Visit Plan uneven surfaces and progress plyometric towards return to running manual to improve ROM
--- NOTE | 2024-10-05 09:44 | PT.OPDS ---
Current Diagnoses Sprain of unspecified ligament of left ankle, subsequent encounter (08/24/24) Visit Care Team Role Provider Type Andrey Sanchez MD Attending Provider Non-Staff Family Provider Primary Care Provider Referring Provider Specialty: Emergency Medicine Family Practice Address: [address] [place] [address], [address], [place], [address] Email: Visit Number Visit Number 03/29 Discharge Summary PT-OP-B Current Condition Start: 06/15/24 16:00 Freq: Status: Active Protocol: Document 06/17/24 09:54 [facility] (Rec: 06/17/24 11:14 [facility] [id number]) Current Condition History of Current Condition Onset Date 05/22 Current Complaints L ankle sprain and 5th MT fx History of Current Condition Pt picked up something and stepped backwards off the porch and twisted. Came to ER and they did ankle xray looked ok. Told him just sprain and was walking on it since they told him it was ok for 10 days . He got stitches out d/t it got cut in hand but walk in didn't look at ankle. Did xray and 5th MT fx and severe med and lat ankle sprain. He hasn' t had any guidance so hasn't done much. He has been in boot since primary appt. Doing ROM at home. When rests for a long time, gets stiff and locks up. Did not give a timeline for the boot but just referred for PT. Hx of R ankle sprains and breaks. In 2014, L ankle had ankle injury w/ant swelling after playing frizbee on feild and lat roll but also pushed into DF. Didn 't have insurance so didn't ahve it checked. Had a chip on L [place] d/t running into doorframe. Typically runs frequently, except R achilles injury in 2022 so has dec some but does hike and walk a lot. Walks beach, goes swimming. Mostly wearing the boot at home. He has tried small bouts later in the day w/the boot Treatment Goals Patient/Caregiver Goals Be able to hike, run, walk on beach PT-OP-C Subjective Start: 06/15/24 16:00 Freq: Status: Active Protocol: Document 08/24/24 08:19 [facility] (Rec: 08/24/24 08:58 [facility] [id number]) OP-PT Subjective Patient Comments Patient Comments has been moving and carrying and going up/downs tairs ok. He has been doing some jogs w/ running. only wearing brace for hiking or pickleball PT-OP-F Manual Assessment Start: 06/15/24 16:00 Freq: Status: Active Protocol: Document 06/17/24 09:54 [facility] (Rec: 06/17/24 11:14 [id number] Manual Assessments Soft Tissue Assessment Soft Tissue Mobility Assessment ant ankle swelling and around malleoli PT-OP-G Mobility & Gait Start: 06/15/24 16:00 Freq: Status: Active Protocol: Document 06/17/24 09:54 [facility] (Rec: 06/17/24 11:14 [id number] OP Gait Assessment Comments Gait Comments amb w/walking boot w/dec stance time PT-OP-K Range of Motion Start: 06/15/24 16:00 Freq: Status: Active Protocol: Document 08/24/24 08:19 [facility] (Rec: 08/24/24 08:58 [facility] [id number]) Ankle and Foot Goniometric Range of Motion Ankle and Foot Left Active Dorsiflexion with Knee Flexed 7 Dorsiflexion with Knee Extended 3 Plantarflexion 42 Inversion 27 Eversion 20 PT-OP-L Special Tests Start: 06/17/24 11:14 Freq: Status: Active Protocol: Document 06/17/24 09:54 [facility] (Rec: 06/17/24 11:15 [facility] [id number]) Special Tests Foot/Ankle Special Tests ant drawer Comments painful and pt guards so difficult to determine for laxity talar tilt Comments positive for pain and inc laxity PT-OP-M Strength Start: 06/15/24 16:00 Freq: Status: Active Protocol: Document 08/24/24 08:19 [facility] (Rec: 08/24/24 08:58 [facility] [id number]) Ankle/Foot Strength Ankle and Foot Manual Muscle Testing Left Dorsiflexion (L4) 5 Normal Inversion 4 Good Eversion (S1) 5 Normal Comments 20 heel raises PT-OP-T Assessment and Plan Start: 06/15/24 16:00 Freq: Status: Active Protocol: Document 10/05/24 09:43 [facility] (Rec: 10/05/24 09:44 [facility] [id number]) Physical Therapy Assessment Goals LEFS Impairment 38/80 Short Term Goal (STG) Pt will improve score of LEFS to at least 50/80 to show improved functional ability. STG Duration achieved to 56/80 07/20 Mcc Goal (LTG) Pt will improve score of LEFS to at least 70/80 to show improved functional ability. LTG Duration achievd to 73 08/05 balance Mcc Goal (LTG) Pt will be able to do SLS for at least 30 sec on LLE to show improved stability to dec risk for further injuries 07/20-12 sec LTG Duration achieved 08/24 gait Short Term Goal (STG) Pt will show good gait mechanics when walking w/o boot w/o pain greater than 2/ 10 STG Duration achieved 07/20 Mcc Goal (LTG) Pt will be able to return to running, hiking, walking on the beach w/o inc pain 08/04/24: walked out on beach little discomfort with brace donned. 08/24-able to w/brace, starting small bits of running during walks LTG Duration 09/09 progressing 08/04/24 AROM Short Term Goal (STG) Pt will have DF to neutral in knee ext and flexed position STG Duration achieved 07/20 Fitness Consultant Goal (LTG) Pt will have full AROM w/o inc pain to allow for greater ease w/activities. LTG Duration achieved 08/24 Assessment Summary Assessment Pt cancelled last scheduled visit which was planned DC visit. At this time, pt dc d/t no longer attending PT. He made excellent progress w/PT and was returning to his active lifestyle at last session. DC to [facility] Physical Therapy Plan Discharge Physical Therapy Discharge Reasons No Longer Attending PT
== END 2024-10-06 10:46 | disposition home or self-care (01) ==
LOC: PHYS 08:15
PROVIDERS: Family Provider Emergency Medicine Emergency Medical Services; PCP Emergency Medicine Emergency Medical Services; Referring Provider Emergency Medicine Emergency Medical Services; Visit Provider Emergency Medicine Emergency Medical Services
DX: S93.402D Sprain of unspecified ligament of left ankle, subsequent encounter (principal)
CPT/HCPCS: 97026; 97035; 97110; 97112; 97140; 97162; 97535